=== PATIENT | female | born 1960 | race Caucasian/White ===

== ENCOUNTER → 2017-01-03 | Outpatient (CLI) | payer OTHER ==
--- NOTE | 2017-01-03 16:15 | US ---
EXAMINATION TYPE: US venous doppler duplex LE LT DATE OF EXAM: 01/03/2017 3:57 PM COMPARISON: NONE CLINICAL HISTORY: I82.40 DVT lower left extremity. Left calf pain. No hx of blood clots or on blood thinners SIDE PERFORMED: Left grayscale, color Doppler, spectral Doppler imaging performed of the deep veins o f the left lower extremity. The level of the mid popliteal vein there is a focal eccentric low-level echo at the level of ectasia of the vein. Most likely represent a valve. There is no obstruction to f low, color flow is noted. The femoral vein and common femoral vein show normal compressibility and bl ood flow, no abnormal luminal echoes. Left Leg: Appears negative for DVT IMPRESSION: Findings felt most likely represent of bowel within the popliteal vein, short interval f ollow-up could be performed as indicated. No acute deep venous thrombosis is suspected.
== END ==
LOC: RADUSWWP 15:08
PROVIDERS: ATTEND Family Medicine
DX: I82.402 Acute embolism and thrombosis of unspecified deep veins of left lower extremity (principal)

== ENCOUNTER → 2017-11-07 | Outpatient (CLI) | payer OTHER ==
--- NOTE | 2017-11-07 13:39 | US ---
EXAMINATION TYPE: US thyroid st tissue head/neck DATE OF EXAM: 11/07/2017 COMPARISON: NONE CLINICAL HISTORY: D17.9 Benign lipomatous neoplasm, unspecified. GLAND SIZE: Right Lobe: 4.7 x 2.3 x 1.9 cm Overall Parenchyma: heterogenous Left Lobe: 3.8 x 2.1 x 1.5 cm Overall Parenchyma: heterogeneous Isthmus Thickness: 0.9 cm NODULES RIGHT: # of nodules measured on right: 0 LEFT: # of nodules measured on left: 0 ISTHMUS: # of nodules measured in the isthmus: 0 Bilateral neck scanned, no evidence of lymphadenopathy. gland is diffusely enlarged and heterogeneous. IMPRESSION: Diffuse glandular enlargement and heterogeneity without distinct nodule.
== END | disposition home or self-care (01) ==
LOC: RADUSWWP 12:56
PROVIDERS: ATTEND Family Medicine
DX: E04.9 Nontoxic goiter, unspecified (principal)
CPT/HCPCS: 76536

== ENCOUNTER → 2019-11-19 | Outpatient (CLI) | payer OTHER ==
--- NOTE | 2019-11-20 07:24 | XR ---
EXAMINATION TYPE: XR chest 2V DATE OF EXAM: 11/19/2019 COMPARISON: NONE HISTORY: Chest pain after fall TECHNIQUE: Frontal and lateral views of the chest are obtained. FINDINGS: There is no focal air space opacity, pleural effusion, or pneumothorax seen. The cardiac silhouette size is within normal limits. The osseous structures are intact. IMPRESSION: No acute cardiopulmonary process.
--- NOTE | 2019-11-20 07:25 | XR ---
EXAMINATION TYPE: XR clavicle RT DATE OF EXAM: 11/19/2019 COMPARISON: NONE HISTORY: Right shoulder pain and numbness and recent fall TECHNIQUE: 2 views of the right clavicle were obtained FINDINGS: No acute displaced fracture seen of the right clavicle. No healed callused fracture deformi ty. Acromioclavicular interval and coracoclavicular interval are maintained. Visualized right ribs ap pear intact. IMPRESSION: No acute displaced fracture of the right clavicle.
--- NOTE | 2019-11-20 07:26 | XR ---
EXAMINATION TYPE: XR femur RT DATE OF EXAM: 11/19/2019 CLINICAL HISTORY: Right-sided back and leg pain after fall TECHNIQUE: Two views of the right femur are obtained. COMPARISON: None FINDINGS: There is no acute fracture or dislocation seen in the right femur. The right hip and knee joints appear aligned. Mild medial compartment joint space narrowing of the knee. The overlying sof t tissue appears unremarkable. IMPRESSION: There is no acute fracture or dislocation in the right femur.
--- NOTE | 2019-11-20 07:26 | XR ---
EXAMINATION TYPE: XR forearm RT DATE OF EXAM: 11/19/2019 COMPARISON: NONE HISTORY: Right arm pain and numbness after fall TECHNIQUE: 2 views of the right forearm are obtained FINDINGS: No elbow joint effusion. No acute displaced fracture of the right forearm. Soft tissues are unremarkable. Osseous mineralization is within normal limits. IMPRESSION: No acute displaced fracture of the right forearm.
--- NOTE | 2019-11-20 07:27 | XR ---
EXAMINATION TYPE: XR elbow complete RT DATE OF EXAM: 11/19/2019 CLINICAL HISTORY: Right elbow pain after fall TECHNIQUE: Frontal, lateral and oblique images of the right elbow are obtained. COMPARISON: None FINDINGS: There is no acute fracture/dislocation evident in the right elbow. Bilateral supracondylar small enthesophytes are seen. No abnormal fat pad signs are seen. The overlying soft tissue appears unremarkable. IMPRESSION: There is no acute fracture or dislocation in the right elbow.
--- NOTE | 2019-11-20 07:30 | XR ---
EXAMINATION TYPE: XR cervical spine comp DATE OF EXAM: 11/19/2019 TECHNIQUE: Frontal, lateral, oblique, swimmers, and open mouth view of the cervical spine are obtaine d. HISTORY: Z91.81 History of falling M25.511 Pain in right sh COMPARISON: None FINDINGS: Intact anterior cervical fusion device is seen from C4 through C6. There is straightening o f usual cervical lordosis. Incidentally noted calcifications of the left carotid. No new malalignment or vertebral body height loss. Multilevel uncovertebral hypertrophy without significant neural macho inal narrowing radiographically on the oblique images. Odontoid appears intact. Prevertebral soft tis sues are unremarkable. IMPRESSION: 1. No acute fracture or malalignment is seen in the cervical spine. 2. Anterior cervical fusion of C4-C6 without hardware fracture.
== END | disposition home or self-care (01) ==
LOC: RADXRMAIN 15:15
PROVIDERS: ATTEND Family Medicine
DX: M25.511 Pain in right shoulder (principal); M79.651 Pain in right thigh; Z98.1 Arthrodesis status; Z91.81 History of falling
CPT/HCPCS: 71046; 72050

== ENCOUNTER → 2023-01-13 | Outpatient (CLI) | payer OTHER ==
--- NOTE | 2023-01-13 23:00 | XR ---
EXAMINATION TYPE: XR foot complete LT DATE OF EXAM: 01/13/2023 CLINICAL HISTORY: Pain worse and second toe TECHNIQUE: Frontal, lateral, and oblique images of the left foot are obtained. COMPARISON: None FINDINGS: There is no acute fracture/dislocation evident in the left foot. Marked hallux valgus defo rmity first metatarsophalangeal joint with mild to moderate narrowing. Enthesopathy posterior superio r calcaneus at distal Achilles tendon insertion. Overlying soft tissue is unremarkable. IMPRESSION: As above.
== END | disposition home or self-care (01) ==
LOC: RADXRMAIN 17:08
PROVIDERS: ATTEND Family Medicine
DX: M20.12 Hallux valgus (acquired), left foot (principal); M77.8 Other enthesopathies, not elsewhere classified

== ENCOUNTER → 2023-02-08 | Outpatient (CLI) | payer OTHER ==
--- NOTE | 2023-02-09 08:38 | CT ---
EXAMINATION TYPE: CT ChestAbdPelvis w con DATE OF EXAM: 02/08/2023 COMPARISON: None. HISTORY: generalized chest, abdominal, and pelvic pain x [address] DLP: 1010.8 mGycm. Automated Exposure Control for Dose Reduction was Utilized. CONTRAST: CT scan of the thorax, abdomen and pelvis is performed with IV Contrast, patient injected with 100ML mL of Isovue 300. FINDINGS: LUNGS: There is 1.2 cm thin-walled cyst in the left upper lobe axial image 26. There is 1.2 x 0.5 cm spiculated nodule or scar like opacity lateral right upper lobe axial image 15. No focal consolidatio n. There is no pleural effusion or pneumothorax seen. The tracheobronchial tree is patent. MEDIASTINUM: There are no greater than 1 cm hilar or mediastinal lymph nodes. No cardiomegaly or pe ricardial effusion is seen. Coronary artery calcification is present. LIVER/GB: Cholecystectomy clips are seen. Liver is diffusely low dense consistent with diffuse fatty infiltration PANCREAS: No significant abnormality is seen. SPLEEN: No significant abnormality is seen. ADRENALS: There is nonspecific 3.0 cm right adrenal mass axial image 55. Hounsfield units average 32. KIDNEYS: No significant abnormality is seen. BOWEL: Oral contrast reaches level of the terminal ileum. This makes evaluation of distal bowel sligh tly suboptimal. Mild/moderate wall thickening in region of the hepatic flexure is nonspecific favored product of poor distention. No suspicious small or large bowel dilatation. Normal-appearing appendix . Slightly redundant sigmoid colon. GENITAL ORGANS: Uterus is surgically absent. A few tiny left-sided pelvic phleboliths are noted. LYMPH NODES: No greater than 1cm abdominal or pelvic lymph nodes are appreciated. OSSEOUS STRUCTURES: Multilevel facet arthropathy in the lower lumbar spine. OTHER: Moderate peripheral mixed plaque of the aorta extends into branch vessels. IMPRESSION: 1. There is 1.2 x 0.5 cm scarlike opacity peripheral right upper lobe. Postinflammatory etiology fav ored. Cannot entirely exclude spiculated nodule. Consider PET- CT or short-term diagnostic CT follow- up in 3-6 months time to reassess. 2. Nonspecific 3.0 cm right adrenal mass. Malignant etiology not excluded. Consider adrenal protocol CT or MRI to further evaluate.
== END | disposition home or self-care (01) ==
LOC: RADCTMAIN 12:58
PROVIDERS: ATTEND Family Medicine
DX: E27.9 Disorder of adrenal gland, unspecified (principal); R07.9 Chest pain, unspecified; R91.8 Other nonspecific abnormal finding of lung field; R10.2 Pelvic and perineal pain; R10.84 Generalized abdominal pain
CPT/HCPCS: 71260; 74177; Q9967

== ENCOUNTER → 2023-04-17 | Outpatient (CLI) | payer OTHER ==
--- NOTE | 2023-04-19 08:51 | MR ---
EXAMINATION TYPE: MR kidney wo/w con DATE OF EXAM: 04/17/2023 10:00 PM INDICATION: Patient age:Female; 62 years old; Reason for study: D35.00; Pt has an intermittent hardness of her abdomen that is painful sometimes - Prev CT recommended MR COMPARISON: CT scan abdomen from 02/08/2023. TECHNIQUE: Multiplanar multi-sequence imaging was performed without contrast. Post contrast imaging was performed. Post IV contrast subtraction images were also submitted for review. IV Contrast: 7ml cc Gadavist FINDINGS: LOWER CHEST: No gross irregularity. ABDOMEN Liver: Simple appearing left ovarian cyst measuring 12 mm. Gallbladder and Bile ducts: The external biliary system is dilated measuring 8 mm at the pancreatic h ead and the common hepatic duct measuring 12 mm. The gallbladder surgically absent. This suggests nor mal post cholecystectomy physiology. Pancreas: Unremarkable. Spleen: Unremarkable. Adrenal glands: Right adrenal mass measuring 2.4 x 1.8 cm with dropout of signal on out of phase chem ical shift imaging. The left adrenal glands unremarkable. Kidneys: No suspicious masses. No hydronephrosis bilateral subcentimeter high T2 foci likely represen ting small cysts. Stomach and Bowel: Unremarkable as visualized. Peritoneum: No evidence of pneumoperitoneum or free fluid. Vasculature: Atherosclerosis of the arterial vasculature.. No aortic aneurysm. Musculoskeletal: L2 vertebral body low T2 signal low T1 signal lower T1 signal lesion without definit lang corresponding CT finding without postcontrast enhancement. T11 vertebral body height T2 signal pr obable hemangioma. Lymph Nodes: No gross evidence for lymphadenopathy. Abdominal wall: Unremarkable. IMPRESSION: 1. Right adrenal lesion measuring up to 2.4 cm most compatible with lipid rich adrenal adenoma with signal dropout on chemical shift imaging. 2. Cholecystectomy with post cholecystectomy dilation of the external and central intrahepatic bilia ry system.
== END | disposition home or self-care (01) ==
LOC: RADMRIMAIN 20:30
PROVIDERS: ATTEND Family Medicine
DX: D35.01 Benign neoplasm of right adrenal gland (principal); K83.8 Other specified diseases of biliary tract; Z90.49 Acquired absence of other specified parts of digestive tract
CPT/HCPCS: 74183; A9585

== ENCOUNTER → 2023-10-05 | Outpatient (CLI) | payer OTHER ==
--- NOTE | 2023-10-12 09:18 | PE ---
EXAMINATION TYPE: PET CT fusion skull to thigh DATE OF EXAM: 10/05/2023 COMPARISON: 02/08/2023 Prior PET/CT: None HISTORY: Liver abnormality TECHNIQUE: Following the intravenous administration of 9.81 mCi of F-18 FDG, whole body images are p erformed from the skull base to the midthigh. Images are reviewed on the computer in the coronal, ax ial, and sagittal planes. Reconstructed rotating images are created on independent workstation and r eviewed on the computer. A localization and attenuation correction CT is performed in conjunction w ith the PET scan. DLP: 355.01 mGycm SCAN: Initial Blood glucose: 104 mg/dL Average Mediastinum SUV: 2.19 Average Liver SUV: 2.44 FINDINGS: NECK: No abnormal uptake THORAX: There is abnormal uptake within the lateral right upper lung field, image 69, SUV 6.52. ABDOMEN: No abnormal uptake. The liver appears unremarkable. No suspicious uptake to correlate with t he prior CT finding. No suspicious uptake within the right adrenal gland PELVIS: No abnormal uptake OSSEOUS STRUCTURES: No abnormal uptake LOCALIZATION CT: There is an area of pulmonary fibrosis corresponding to the area of abnormal uptake on PET CT. COMPARISON: IMPRESSION: 1. Suspicious nodule within an area of pulmonary fibrosis lateral right upper lung field. Neoplasm sh ould be considered. Additional workup is recommended. 2. No suspicious uptake within the liver correlated with prior chest abdomen and pelvis CT. 3. No suspicious uptake within the right adrenal gland.
== END | disposition home or self-care (01) ==
LOC: RADPETMAIN 15:00
PROVIDERS: ATTEND Family Medicine
DX: C22.8 Malignant neoplasm of liver, primary, unspecified as to type (principal); J84.10 Pulmonary fibrosis, unspecified
CPT/HCPCS: 78815; A9552

== ENCOUNTER → 2024-01-25 | Outpatient (CLI) | payer OTHER ==
--- NOTE | 2024-01-26 15:22 | PE ---
EXAMINATION TYPE: PET CT fusion skull to thigh DATE OF EXAM: 01/25/2024 CLINICAL INDICATION:Female, 63 years old with history of C34.11; TECHNIQUE: Following the intravenous administration of 8.12 mCi of F-18 FDG, whole body images are performed from the skull base to the midthigh. Images are reviewed on the computer in the coronal, a xial, and sagittal planes. Reconstructed rotating images are created on independent workstation and reviewed on the computer. A non-contrast CT is performed in conjunction with the PET scan. Glucose level 109 mg/dL CT DLP mGycm, Automated exposure control for dose reduction was used. COMPARISON: CT 02/08/2023, PET/CT 10/05/2023, FINDINGS: Mediastinal SUV mean is 2.5. Hepatic parenchyma SUV mean is 2.8. SKULL BASE AND NECK: No suspicious radiotracer activity. CHEST, MEDIASTINUM, AND HILAR REGION: * Suspected posttreatment changes to the right upper lung with superimposed airspace consolidation p resent. Cavitary lesion now measuring 24 x 29 mm, previously measuring up to 10 mm. Max SUV 19.3, pre viously 6.6. There is increased solid component within this lesion on today's exam. New area more inf eriorly and posteriorly along the fissures uptake max SUV 4.1. * Right low paratracheal lymph node max SUV 4.1, previously 2.8. ABDOMEN AND PELVIS: No suspicious radiotracer activity. MUSCULOSKELETAL STRUCTURES: No suspicious radiotracer activity. OTHER CT: Atherosclerosis of the carotid bifurcations. Postsurgical changes of the spine. Hardware ap pears intact. Atherosclerosis of the coronary arteries. The heart is mildly enlarged for size. Right adrenal nodule appearing 22 mm. Cholecystectomy changes. Clonic diverticulosis. Appendix is normal. IMPRESSION: 1. Suspected posttreatment changes with increased metabolic activity and size with increased solid c omponent of the valdez of the right upper lung cavitary pulmonary nodule. 2. A right low paratracheal lymph node is also present and could be reactive.
--- NOTE | 2024-01-29 17:00 | P.GSHP ---
History of Present Illness H&P Date: 01/29/24 Chief Complaint: Lung Cancer This patient is here regarding an opinion on a newly diagnosed adenocarcinoma of the RUL. The patient is a 63 y/o F with >80 pack year history of smoking, htn, hld, hypothy and fibromyalgia who had a CT Chest on 02/09/23 which revealed a 1cm nodule in the RUL. For whatever reason, she was lost to follow-up and had issues with her insurance. She underwent PET/CT on 10/02/23 which revealed a 3cm tumor with possible 4R lymph node. She then had a biopsy of the lesion on 12/18/23 in [place] which revealed poorly differentiated adenocarcinoma. She has had a repeat PET/CT which reveals the nodule plus new inflammatory changes in both the upper and middle lobes. The patient has cut down to 1/2ppd. She initially lost 15 lbs but then re-gained 10. She denies hemoptysis, chest pain, or productive cough. She has a chronic dry cough. - Constitutional Constitutional: Reports as per HPI - EENT Ears, nose, mouth and throat: Reports as per HPI - Cardiovascular Cardiovascular: Reports as per HPI - Respiratory Respiratory: Reports as per HPI - Gastrointestinal Gastrointestinal: Reports as per HPI Past Medical History Past Medical History: Asthma, Cancer, Hyperlipidemia Additional Past Medical History / Comment(s): Pinched Nerve in lower hip History of Any Multi-Drug Resistant Organisms: None Reported Past Surgical History: Back Surgery, Cholecystectomy, Hysterectomy Past Psychological History: Depression Past Alcohol Use History: None Reported Past Drug Use History: None Reported Medications and Allergies Home Medications Medication Instructions Recorded Confirmed Type EPINEPHrine [Epipen 2-Hao] 0.3 mg IJ ONCE PRN #1 auto.injct 12/19/15 Rx Furosemide [Lasix] 40 mg PO DAILY 12/19/15 12/19/15 History HYDROcodone/APAP 7.5-325MG [[place] 1 tab PO TID 12/19/15 12/19/15 History 7.5-325] diazePAM [Valium] 5 mg PO HS 12/19/15 12/19/15 History predniSONE [Deltasone] 20 mg PO DAILY #3 tab 12/19/15 Rx Allergies Allergy/AdvReac Type Severity Reaction Status Date / Time cephalexin monohydrate Allergy Rash/Hives Verified 12/19/15 22:56 [From Keflex] Surgical - Exam - General well developed, well nourished - Eyes PERRL absent: ptosis - ENT normal pinna - Neck no masses lymphadenopathy: absent - Respiratory normal respiratory effort, clear to auscultation - Cardiovascular Rhythm: regular Heart Sounds: normal: S1, S2 Results FEV 1 - 1.72L (74%) - Imaging CT scan - chest: report reviewed, image reviewed Assessment and Plan Assessment: 63 y/o F with a 3cm RUL poorly differentiated adenocarcinoma. She may have disease in 4R lymph node and most recent PET/CT reveals intense inflammatory reaction near the tumor and encompassing the middle lobe. I am concerned that her carcinoma has progressed. We had a long discussion about treatment options today. We discussed that surgery is not off the table but we need more infor mation. Plan: Prior to planning any surgical resection we will obtain the followin. EBUS and full PFT's with Dr. Dumont 2. Then refer back to Dr. Tejada for possible neoadjuvant 3. Cardiac stress test 4. MRI Brain We will see her back again in the office after these things are done. She will need a re-staging PET if she undergoes neoadjuvant. Time with Patient: Greater than 30
== END | disposition home or self-care (01) ==
LOC: RADPETMAIN 10:14
PROVIDERS: ATTEND Internal Medicine Hematology & Oncology
DX: C34.11 Malignant neoplasm of upper lobe, right bronchus or lung (principal)
CPT/HCPCS: 78815; A9552

== ENCOUNTER 2024-02-07 12:24 | Day surgery (SDC) | payer OTHER ==
[2024-02-06 11:59] VITALS: BMI 29.2
[~2024-02-07 12:24] MED LIST: LACTATED RINGERS 1,000 ML IV SCH; LIDOCAINE 1% (10MG/ML) FOR IV START INTRADERMA PRN
[2024-02-07] MEDS: LACTATED RINGERS 1,000 ML IV SCH (13:30)
[2024-02-07] MEDS ORDERED: ROCURONIUM 10 MG/ML (5 ML VIAL) IV ONE (13:58)
[2024-02-07] MEDS ORDERED: fentaNYL (PF) 50 MCG/ML 2 ML AMP ONE (13:58)
[2024-02-07] MEDS ORDERED: PROPOFOL 10 MG/ML 20 ML VIAL IV ONE (13:58)
[2024-02-07] MEDS ORDERED: NEOSTIGMINE 1 MG/ML 10 ML VIAL ONE (13:58)
[2024-02-07] MEDS ORDERED: LIDOCAINE 1% INJ 10MG/ML (20 ML MDV) ONE (13:58)
[2024-02-07] MEDS ORDERED: MIDAZOLAM 2 MG/2 ML VIAL ONE (13:58)
[2024-02-07] MEDS ORDERED: ONDANSETRON 4 MG/2 ML VIAL ONE (13:58)
[2024-02-07] MEDS ORDERED: GLYCOPYRROLATE 0.2 MG/ML 2 ML VIAL ONE (13:58)
[2024-02-07] MEDS ORDERED: SUCCINYLCHOLINE CHLORIDE 200 MG/10 ML VIAL IV ONE (13:58)
[2024-02-07] MEDS ORDERED: PHENYLEPHRINE 10 MG/ML VIAL ONE (13:58)
[2024-02-07] MEDS ORDERED: DEXAMETHASONE SOD PHOSPHATE 4 MG/ML 1 ML VIAL ONE (13:58)
--- NOTE | 2024-02-07 14:38 | CT ---
EXAMINATION TYPE: CT chest wo con CT DLP: 257.60 mGycm, Automated exposure control for dose reduction was used. DATE OF EXAM: 02/07/2024 12:57 PM COMPARISON: Chest radiograph from same day. Multiple CTs of the chest with most recent on . CLINICAL INDICATION:Female, 63 years old with history of ion bronchoscopy; PHH, Ion Bronchoscopy TECHNIQUE: Multiple axial images were obtained through the chest. Sagittal and coronal reformats were created for review. Contrast used: mL of (None if empty) Oral contrast used: (None if empty) FINDINGS: LUNGS/ PLEURA: Cystic versus centrally necrotic right upper lobe thick walled mass is identified exte nsive surrounding fibrosis. The surrounding fibrosis raises question of whether there has been previo us radiation therapy. Other etiologies are possible such as disseminated infectious, inflammatory or neoplastic process. AIRWAY: Patent and unremarkable. HEART: Size within normal limits. MEDIASTINUM: No gross evidence of adenopathy. VASCULATURE: No aortic aneurysm. MUSCULOSKELETAL: No acute osseous abnormalities SOFT TISSUES/LYMPH NODES: Unremarkable. LOWER NECK: No significant findings. UPPER ABDOMEN: No significant findings. IMPRESSION: 31 mm thick walled lesion in the right upper lobe and 21 mm thin-walled lesion in the left upper lobe cystic lesion is identified in the left upper lobe. Follow up recommendations for incidental pulmonary nodules, if there are any, are per [employer] or [employer]. https://[email or web address].org/[email or web address]?lang=us
--- NOTE | 2024-02-07 15:08 | FL ---
EXAMINATION TYPE: FL bronchoscopy DATE OF EXAM: 02/07/2024 CLINICAL HISTORY: Ion Robot TECHNIQUE: Fluoroscopy. COMPARISON: None. FINDINGS: 30 sec FL .5049 DAP dose IMPRESSION: As Above.
--- NOTE | 2024-02-07 15:09 | P.PCN ---
Date of Procedure: 02/07/24 Description of Procedure: Operative Findings: Preoperative Diagnosis: Right mass measuring 24 x 29 mm in size along with significant distal socials infiltrates surrounding the mass. Mediastinal lymphadenopathy Postoperative Diagnosis: Right upper lobe mass mediastinal lymphadenopathy Procedure(s) Performed: Flexible bronchoscopy Robotic-assisted bronchoscopy and addition to radial ultrasound evaluation of the right upper lobe mass Robotic-assisted transbronchial needle aspirate, transbronchial biopsies and transbronchial brushing of a right upper lobe mass in addition to a bronchioloalveolar lavage Endobronchial ultrasound TBNA of the station 7 and 4R lymph nodes Anesthesia: RICH Surgeon: Gee Dumont Estimated Blood Loss (ml): 0 Pathology: other Condition: stable Disposition: same day Operative Findings: A physical exam was performed. Informed consent was obtained from the patient after explaining all the risks (pneumothorax, life threatening bleeding, infection and adverse effects due to medications), benefits and alternatives to the procedure which the patient appeared to understand and so stated. The patient was connected to the monitoring devices. General anesthesia was induced and the patient was intubated by anesthesia. A final timeout was performed and the procedure confirmed by the attending staff bronchoscopist. The bronchoscope was inserted and the airway examined. The patient had some bloody secretions within the within the airways. The bloody respiratory secretions were both in the upper and lower lobes. The origin of the bleed was most likely right upper lobe bronchus as most of the respiratory bloody secretions were located in the right upper lobe. The flexible bronchoscope was removed and the robotic bronchoscope was inserted. Registration was completed. I next guided the robotic bronchoscope using the navigation system into the right anterior segment of the RUL. Once in proper position, the bronchoscope was frozen. The radial EBUS probe was placed through the bronchoscope and confirmed abnormal u/s images vs normal lung. A needle was placed through the working channel and under fluoroscopic guidance, we sampled the area thought to have the mass twice. We then used a cloud biopsy pattern with ultrasound confirmation for 2 additional passes with the needle. U/S evaluation was then used to reconfirm location. Forceps were next introduced through working channel and extended the appropriate distance and 3 transbronchial biopsies were performed using fluoroscopic guidance. The u/s probe was then reinserted to confirm location. When confirmed this process was repeated for a total of 8-10 transbronchial biopsies. After reassessment with EBUS, a brush was placed through the extendable working channel for 1 pass with fluoroscopic guidance. U/S evaluation was then used to confirm location. 40ml of saline was then instilled into the area of the lesion. The robotic bronchoscope was removed and the airway inspected with a flexible bronchoscope and 10 ml of effluent from the BAL was collected. The aspirate was bloody and ultimately declotted and based on that, the sample was discarded. Flex. bronchoscope was inserted and regular suctioning was done. At the completion of the procedure, no residual secretions or bloody material within the airway. The bronchoscope was removed. The patient was extubated. Endobronchial ultrasound was done with mediastinal lymph node evaluation. A detailed evaluation of the mediastinal lymph nodes was done using endobronchial ultrasound. Based on examination, there was a 21x8 mm subcarinal station 7 lymph nodes , 9x6 mm lymph node in the 10R , 8 x 13 mm 4R location. Using a 22-gauge vizishot needle, transbronchial needle aspirate of the subcarinal lymph node station 7 and station 4R lymph node was done and a total of 4 passes from the stations was taken. No complications. No bleeding. Station 4R was chosen as this lymph node was quite adequate. Endobronchial ultrasound was removed. Flexible bronchoscope was introduced and have regular suctioning was done and the airway was evacuated from any residual bloody secretions. The flexible bronchoscope was 1 and the patient was extubated and transferred to recovery in stable condition. Chest x-rays to follow. FINDINGS: 1.The airways appeared normal 2 Successful navigation, ultrasonographic identification, and biopsies of Right upper lobe mass 3.The the radial ultrasound view was concentric RECOMMENDATIONS: Await pathology and cytology results The referring physician will be alerted to the results when available. The patient was advised to follow up with the referring physician with the biopsy results Patient will be called with results.
[2024-02-07] MEDS: IV FLUID CONTINUATION 1,000 ML IV ONE (15:14)
[2024-02-07] MEDS: RACEPINEPHRINE 2.25% NEB 0.5 ML NEBU INHALATION ONE (15:15)
[2024-02-07] MEDS: DEXAMETHASONE SOD PHOSPHATE 10 MG/ML 1 ML VIAL IV ONE (15:16)
[2024-02-07 15:29] VITALS: TEMP 96.9
[2024-02-07 16:14] VITALS: BP 102/66; PULSE 80; RESP 16
--- NOTE | 2024-02-07 16:23 | XR ---
EXAMINATION TYPE: XR chest 1V DATE OF EXAM: 02/07/2024 COMPARISON: 02/03/2020, CT chest 02/07/2024 INDICATION: Post bronchoscopy TECHNIQUE: Single frontal view of the chest is obtained. FINDINGS: The heart size is normal. The pulmonary vasculature is normal. Increased densities over the lateral right upper lung field. Cavitary area may be within the upper po rtion of this collection. This correlates with the findings on CT examination. No pneumothorax is tonia dent. IMPRESSION: 1. Consolidation mass right upper lung field. 2. No pneumothorax post bronchoscopy. Follow-up can be performed as clinically indicated.
== END 2024-02-07 16:28 | disposition home or self-care (01) ==
LOC: ORWHC2ENDO 12:24
PROVIDERS: ATTEND Internal Medicine Critical Care Medicine
DX: R91.8 Other nonspecific abnormal finding of lung field (principal); I10 Essential (primary) hypertension; E78.5 Hyperlipidemia, unspecified; J45.909 Unspecified asthma, uncomplicated; E03.9 Hypothyroidism, unspecified; K21.9 Gastro-esophageal reflux disease without esophagitis; Z79.51 Long term (current) use of inhaled steroids; Z98.890 Other specified postprocedural states; Z79.899 Other long term (current) drug therapy; Z79.890 Hormone replacement therapy
CPT/HCPCS: 31654; 88305; 87070; 87205; 87116; 87102; 87206; 71045; 71250; 31628; 31629; 31623; 31624; 31652; J2250; J0330; J1100 ×2; J2710; J2405; J2001; J3010; J2704; J2371; S2900

== ENCOUNTER → 2024-02-13 | Outpatient (CLI) | payer OTHER ==
--- NOTE | 2024-02-13 10:30 | CA ---
Exercise Stress Test Report Name: Maisha Stephen Exam Date: 02/13/2024 09:13 Exam Location: [place] Stress Ht (in): 62 Wt (lb): 160 BSA: 1.74 Ordering Phys: Palma Horta MD Referring Phys: PALMA HORTA Technologist: Emilia Wooten RDCS Age: 63 Gender: F : 1960 Procedure CPT: Indications: I25.10 cardiovascular disease ICD-10 Codes: Patient History: Medications: Meds past 24 hrs: Pretest Chest Pain: STRESS TEST Ruben Protocol Exercise Duration (min:sec): 01:[address] Depressions (mm): Angina Score: Reveles Score: Resting HR (bpm): 71 Peak HR (bpm): 134 Resting BP (mmHg): 135 / 78 Peak BP (mmHg): 180 / 58 MPHR: 158 Target HR: 134 % MPHR: 85 METS: 3.4 Total Dose: Peak Dose: Atropine: Double Product: 13237 BP Response: Stress Termination: PATIENT REQUEST TO STOP Stress Symptoms: NO SYMPTOMS Stress Summary: ECG ANALYSIS Resting ECG: Stress ECG: CONCLUSIONS Poor exercise tolerance Normal electrocardiogram stress testing Dr. Humza Patel MD (Electronically Signed) Final Date: 13 February 2024 10:29
--- NOTE | 2024-02-13 12:16 | MR ---
EXAMINATION TYPE: MR brain wo/w con DATE OF EXAM: 02/13/2024 COMPARISON: None HISTORY: Lung cancer, Evaluate for mets TECHNIQUE: Multiplanar, multisequence images of the brain and brainstem is performed without and with IV contras t, utilizing 7 mL intravenous Gadavist . FINDINGS: Diffusion weighted images demonstrate no evidence of a recent infarct or other diffusion ab normality. There is mild generalized degenerative change. Abnormal signal in the white matter is nonspecific but most likely microvascular ischemia. Midline structures demonstrate normal morphology. The craniocervical junction appears within normal limits. Post contrast images demonstrate no enhancing mass. There is incidental note made of a small venous angioma in the right frontal lobe.. The dural venous sinuses appear patent. Ascites and the globes are intact. IMPRESSION: 1. No enhancing mass or mass effect. 2. Degenerative and nonspecific white matter changes most typical of remote microvascular ischemia.
== END | disposition home or self-care (01) ==
LOC: RADNMMAIN 08:48
PROVIDERS: ATTEND Thoracic Surgery (Cardiothoracic Vascular Surgery)
DX: C34.11 Malignant neoplasm of upper lobe, right bronchus or lung (principal); I25.10 Atherosclerotic heart disease of native coronary artery without angina pectoris; I67.82 Cerebral ischemia
CPT/HCPCS: 93017; 70553; A9585

== ENCOUNTER → 2024-05-02 | Outpatient (CLI) | payer OTHER ==
[2024-05-02 11:07] LABS: African American GFR (CKD) 50 (>60 ml/min/1.73 sqM); Blood Urea Nitrogen 21 mg/dL (7-17); Non-African American GFR(CKD) 43 (>60 ml/min/1.73 sqM)
--- NOTE | 2024-05-03 10:34 | CT ---
EXAMINATION TYPE: CT chest w con CT DLP: 225.7 mGycm, Automated exposure control for dose reduction was used. DATE OF EXAM: 05/02/2024 12:11 PM COMPARISON: CT chest 02/07/2024, PET CT 01/25/2024, 10/05/2023. CLINICAL INDICATION:Female, 64 years old with history of C34.11 LUNG CA; PHH, Lung Cancer TECHNIQUE: Multiple axial images were obtained through the chest following the administration of 100 cc of Isovue 300. . Coronal and sagittal reformats reviewed. FINDINGS: LUNGS/ PLEURA: No pleural effusion or pneumothorax. Significant improvement to previously seen inters titial opacities within the right upper lobe. There are some residual opacities identified within the right upper lobe. Decreased size of 1.8 cm peripheral right upper lobe cystic lesion now demonstrat ing a thin wall measuring up to 2 mm in thickness, previously measured 3.1 cm with a maximal wall thi ckness of 9 mm (series 4, image 12). Slight decrease in size of lateral left upper lobe 1.7 cm cystic lesion, previously measured 2.1 cm. However there is new eccentric wall thickening measuring up to 9 mm (series 4, image 24). No new definitive pulmonary nodules or masses. AIRWAY: Patent and unremarkable.. HEART: Size within normal limits. No pericardial effusion. MEDIASTINUM: No evidence of adenopathy. VASCULATURE: No aortic aneurysm. Mild atherosclerotic calcification of the aorta and its branches. MUSCULOSKELETAL: No acute osseous abnormalities. Anterior cervical fusion hardware. No aggressive oss eous lesion. SOFT TISSUES/LYMPH NODES: Unremarkable. LOWER NECK: No significant findings. UPPER ABDOMEN: Post cholecystectomy changes. Dilatation of the common bile duct which is likely relat ed to post cholecystectomy. Liver is diffusely hypoattenuating consistent with steatosis. Stable righ t adrenal 2.1 cm nodule which was not FDG avid on prior PET/CT. IMPRESSION: 1. Significant improvement in right upper lobe interstitial opacities with some residual opacities re maining. Decrease in size of right upper lobe cystic lesion with marked thinning of the wall suggesti ng positive response to treatment however the left upper lobe cystic lesion has now developed eccentr ic wall thickening suggesting possible recurrence versus infectious/inflammatory etiology. No new pul monary nodules/masses. No new lymphadenopathy. Further evaluation with PET/CT is recommended. 2. Stable right adrenal gland nodule. 3. Hepatic steatosis.
== END | disposition home or self-care (01) ==
LOC: RADCTMAIN 10:10
PROVIDERS: ATTEND Internal Medicine Hematology & Oncology
DX: C34.11 Malignant neoplasm of upper lobe, right bronchus or lung (principal); K76.0 Fatty (change of) liver, not elsewhere classified; R91.8 Other nonspecific abnormal finding of lung field; E27.9 Disorder of adrenal gland, unspecified
CPT/HCPCS: 82565; 84520; 71260; 36415; Q9967

== ENCOUNTER → 2024-05-17 | Outpatient (CLI) | payer OTHER ==
--- NOTE | 2024-05-17 15:48 | US ---
EXAMINATION TYPE: US kidneys/renal and bladder DATE OF EXAM: 05/17/2024 COMPARISON: PET 2022, CT 2022, and MR kidneys 04/17/2023 CLINICAL INDICATION: Female, 64 years old with history of C34.11 LUNG CA; Hx lung cancer; evaluate fo r renal mass. Abnormal renal labs EXAM MEASUREMENTS: Right Kidney: 10.1 x 4.8 x 5.1 cm Left Kidney: 9.7 x 4.5 x 4.4 cm Right Kidney: Questionable renal mass versus dromedary hump. 2.6 x 3.3 x 2.5cm Left Kidney: Appears wnl Bladder: Not distended Bilateral Jets seen: No There is no evidence for hydronephrosis at this point in time. No nephrolithiasis is seen. Right zacarias al dromedary hump redemonstrated. Left kidney appears unremarkable. No suspicious renal mass identifi ed. The visualized portion liver is echogenic consistent with fatty infiltration. The urinary bladder is underdistended limiting evaluation. Bilateral ureteral jets are not seen. IMPRESSION: 1. No hydronephrosis or nephrolithiasis. 2. Right renal dromedary hump. No ultrasound evidence for suspicious renal mass. 3. Hepatic steatosis.
== END | disposition home or self-care (01) ==
LOC: RADUSWWP 15:17
PROVIDERS: ATTEND Internal Medicine Hematology & Oncology
DX: K76.0 Fatty (change of) liver, not elsewhere classified (principal); C34.11 Malignant neoplasm of upper lobe, right bronchus or lung; N28.89 Other specified disorders of kidney and ureter; Z03.89 Encounter for observation for other suspected diseases and conditions ruled out; R79.89 Other specified abnormal findings of blood chemistry
CPT/HCPCS: 76770

== ENCOUNTER → 2024-06-21 | Outpatient (CLI) | payer OTHER ==
[2024-06-21 14:30] LABS: INR 0.9 (<1.2); Partial Thromboplastin Time 23.9 sec (22.0-30.0); Prothrombin Time 10.4 sec (10.0-12.5)
[2024-06-21 18:11] LABS: HCT 33.1 % (37.2-46.3); MCH 28.6 pg (27.0-32.0); MCHC 30.2 g/dL (32.0-37.0); MCV 94.6 FL (80.0-97.0); Mean Platelet Volume 10.3 FL (9.5-12.2); NRBC Per 100 WBC 0 X 10*3/uL (0.00-0.01); Platelet Count 291 X 10*3/uL (140-440); RDW 22.4 % (11.5-14.5); WBC 6.01 X 10*3/uL (4.50-10.00)
[2024-06-21 18:28] LABS: Appearance,Urine Clear (Clear); Bilirubin,Urine Negative (Negative); Blood,Urine Negative (Negative); Color,Urine Yellow (Yellow); Ketones,Urine Negative (Negative); Nitrite,Urine Negative (Negative); Specific Gravity,Urine 1.013 (1.001-1.030); Urobilinogen,Urine 0.2 E.U./DL
[2024-06-21 18:46] LABS: Bacteria,Urine Trace (None Seen)
[2024-06-21 19:25] LABS: Blood Urea Nitrogen 11.2 mg/dL (9.0-27.0); Carbon Dioxide 25.1 mmol/L (21.6-31.8); Chloride 102 mmol/L (96-109); Glucose 162 mg/dL (70-110); Magnesium 1.8 mg/dL (1.5-2.4); Potassium 4.2 mmol/L (3.5-5.5); Sodium 143 mmol/L (135-145); T4, Free (Free Thyroxine) 1.24 ng/dL (0.80-1.80)
[2024-06-21 20:50] LABS: Anisocytosis (M) 2+; Basophils # (A) 0.06 X 10*3/uL (0.00-0.10); Elliptocytes 2+; Eosinophils # (A) 0.17 X 10*3/uL (0.04-0.35); Eosinophils % (A) 2.8 %; Lymphocytes # (A) 1.27 X 10*3/uL (0.90-5.00); Lymphocytes % (A) 21.1 %; Macrocytosis (M) 2+; Microcytosis (M) 2+; Monocytes # (A) 0.52 X 10*3/uL (0.20-1.00); Monocytes % (A) 8.7 %; Neutrophils # (A) 3.97 X 10*3/uL (1.80-7.70); Neutrophils % (A) 66.1 %; Stomatocytes 2+; Tear Drop Cells 2+
== END | disposition home or self-care (01) ==
LOC: LABPAT 13:21
PROVIDERS: ATTEND Thoracic Surgery (Cardiothoracic Vascular Surgery)
DX: Z01.812 Encounter for preprocedural laboratory examination (principal); C34.11 Malignant neoplasm of upper lobe, right bronchus or lung; I48.91 Unspecified atrial fibrillation; E86.0 Dehydration; R58 Hemorrhage, not elsewhere classified; Z79.899 Other long term (current) drug therapy
CPT/HCPCS: 36415; 80051; 81001; 82565; 82947; 83735; 84439; 84443; 84481; 84520; 85025; 85610; 85730; 86850; 86900; 86901; 87086

== ENCOUNTER 2024-06-27 05:34 | Inpatient (IN) | payer OTHER ==
[~2024-06-27 05:34] MED LIST changes: +DEXAMETHASONE SOD PHOSPHATE 4 MG/ML 1 ML VIAL IV ONE; -LACTATED RINGERS 1,000 ML IV SCH; +droPERidol 5 MG/2 ML VIAL IVP ONE
[2024-06-27] MEDS: IV FLUID CONTINUATION 1,000 ML IV ONE ×3 (06:02→13:26)
[2024-06-27] MEDS: ONDANSETRON 4 MG/2 ML VIAL IVP ONE (06:21)
[2024-06-27] MEDS: LACTATED RINGERS 1,000 ML IV SCH (06:21)
[2024-06-27] MEDS: fentaNYL (PF) 50 MCG/ML 2 ML AMP IVP ONE ×2 (06:57→07:02)
[2024-06-27] MEDS: MIDAZOLAM 2 MG/2 ML VIAL IVP ONE ×2 (06:57→07:02)
[2024-06-27] MEDS ORDERED: HYDROmorphone 0.5 MG/0.5 ML SYRINGE IVP PRN (07:00)
[2024-06-27] MEDS ORDERED: PHENYLEPHRINE-0.9% NACL SYG 1,000 MCG/10 ML SYRINGE ONE (07:23)
[2024-06-27] MEDS ORDERED: DEXAMETHASONE SOD PHOSPHATE 4 MG/ML 1 ML VIAL ONE (07:23)
[2024-06-27] MEDS ORDERED: MIDAZOLAM 2 MG/2 ML VIAL ONE (07:23)
[2024-06-27] MEDS ORDERED: HYDROmorphone (PF) 1 MG/ML ONE (07:23)
[2024-06-27] MEDS ORDERED: SUCCINYLCHOLINE CHLORIDE 200 MG/10 ML VIAL IV ONE (07:23)
[2024-06-27] MEDS ORDERED: LIDOCAINE 1% INJ 10MG/ML (20 ML MDV) ONE (07:23)
[2024-06-27] MEDS ORDERED: ePHEDrine 50 MG/ML 1 ML VIAL ONE (07:23)
[2024-06-27] MEDS ORDERED: PROPOFOL 10 MG/ML 20 ML VIAL IV ONE (07:23)
[2024-06-27] MEDS ORDERED: ROPIVACAINE 5 MG/ML 30 ML VIAL ONE (07:23)
[2024-06-27] MEDS ORDERED: SUGAMMADEX SODIUM 200 MG/2 ML SDV IV ONE (07:23)
[2024-06-27] MEDS ORDERED: ROCURONIUM 10 MG/ML (5 ML VIAL) IV ONE (07:23)
[2024-06-27] MEDS ORDERED: fentaNYL (PF) 50 MCG/ML 2 ML AMP ONE (07:23)
[2024-06-27] MEDS: CLINDAMYCIN 900 MG in DEXTROSE 5% IN WATER 50 ML IVPB PRN (07:28)
--- NOTE | 2024-06-27 07:32 | P.ANPRN ---
Procedure Note - Anesthesia - Nerve Block Performed Right Erector Spinae Single Date of Procedure: 06/27/24 Procedure Start Time: :07 Procedure Stop Time: 07:15 Location of Patient: PreOp Indication: Acute Post-Operative Pain, Requested by Surgeon Specifically requested for management of pain by DrKody: Ruben Yusuf Sedation Type: Sedate with meaningful contact maintained Preparation: Sterile Prep Position: Sitting Ultrasound used to visualize needle placement: Yes Ultrasound used to observe medication spread: Yes Injectate: 0.5% Ropivacaine (see comment for volume) (30cc plus decadrone 8 cc)
--- NOTE | 2024-06-27 07:33 | P.ANPRN ---
Procedure Note - Anesthesia - Invasive Line Right Arterial Line Date of Procedure: 06/27/24 Time of Procedure: 06:56 Location of Patient: PreOp Preparation: Sterile Prep Arterial Line Location: Radial Ultrasound Used: No Narrative: Invasive line placement per sterile protocol utilized.
[2024-06-27] MEDS: BUPIVACAINE (PF) 0.5% 30 ML VIAL SQ ONE ×3 (07:35→10:36)
[2024-06-27] MEDS: LACTATED RINGERS 1,000 ML IV ONE (10:35)
[2024-06-27] MEDS ORDERED: IPRATROPIUM-ALBUTEROL 3 ML NEB IH PRN (10:53)
[2024-06-27] MEDS ORDERED: METOCLOPRAMIDE 5 MG/ML 2 ML VIAL IVP PRN (10:53)
[2024-06-27] MEDS ORDERED: traMADol 50 MG TAB PO PRN (10:53)
[2024-06-27] MEDS ORDERED: bisacodyL 10 MG SUPP RECTAL PRN (10:53)
--- NOTE | 2024-06-27 11:22 | OP ---
OPERATIVE REPORT DATE OF SERVICE : 06/27/2024 PREOPERATIVE DIAGNOSIS: Right upper lobe lung carcinoma. POSTOPERATIVE DIAGNOSIS: Right upper lobe lung carcinoma. OPERATIVE PROCEDURE: Robotic-assisted thoracoscopic right upper lobectomy with mediastinal lymph node dissection. CLINICAL ESTHETICIAN: Ramana Vega MD ANESTHESIA: General endotracheal by Dr. Robin. INDICATIONS: The patient initially presented with a right upper lobe mass. She was seen by Dr. Horta. He is concerned that she might have some disease involving the right middle lobe and decided to send her for neoadjuvant therapy. She underwent several courses of neoadjuvant chemo and immunotherapy with an excellent response. Repeat CT scan was performed in the interim. Dr. Horta left [place]. She was referred to me. We had a little delay because of the computer breakdown and I was unable to review her studies until the computer started working again, but I reviewed her studies. I recommended a right upper lobectomy and she was scheduled electively. PROCEDURE IN DETAIL: The patient was brought to the operating room, placed supine on the operating table. Anesthetized and intubated with a double lumen endotracheal tube. Tube was positioned with fiberoptic bronchoscope. The patient was turned in the left lateral decubitus position and appropriately positioned for a robotic lobectomy. Right chest was sterilely prepped and draped. Single lung ventilation was initiated and robotic ports were placed. An 8 mm plate port was placed in the 8th interspace in the midaxillary line. Two 12 mm ports were placed anterior and posterior to this one and a second 8 mm port was placed posteriorly in the 4th interspace. Working port was placed in the 10th interspace anteriorly. On exploration of the chest, there were some adhesions of the upper lobe to the mediastinal pleura medially. The fissures were partial and incomplete. I started taking down the inferior pulmonary ligament and dissected out to the paraesophageal and subcarinal lymph nodes. In dissecting these out, the patient acutely became bradycardic with complete heart block and associated hypotension. We ceased the operation, went on two lung ventilation. The patient was treated medically and recuperated. Discussion was held between Surgery and Anesthesia, and it was decided to proceed with the operation at that point as we had further problems. Single lung ventilation was again initiated and we continued the dissection of the RA and level 7 lymph nodes. We then carried the dissection anteriorly onto the bronchus intermedius resecting R11 lymph nodes. There was a small branch of the pulmonary vein extending from the upper lobe to the superior segment of the lower lobe and this was taken with a robotic vascular stapler. We then were able to encircle the right upper lobe bronchus and ligated and divided with a robotic green stapler. Further lymph nodes in the hilum were resected and sent as R11 nodes and then we took the dissection anteriorly. Superior pulmonary vein was dissected out and branches draining the middle lobe were identified and spared. We encircled the branches draining the upper lobe and ligated and divided them with a single firing of a robotic vascular stapler. Dissection was now carried down to 2 large branches of the pulmonary artery leading to the right upper lobe and these were taken with 2 firings of Endo robotic vascular stapler. There were 2 very small branches of the pulmonary arteries leading to the upper lobe and these were ligated and divided with a vessel sealer. Remaining hilar nodes were now resected, sent as R11 lymph nodes. We now were able to be easily complete the fissure with multiple firings of a robotic blue stapler and the lobe was completely freed. Adhesions to the mediastinal pleura had been taken down with electrocautery and the superior pleural reflection had been taken down with electrocautery. The lobe was placed in EndoCatch bag and pulled back into the working port. We now resected the R10 and R4 lymph nodes. Hemostasis of the chest wall at the site of the adhesions was touched up with some electrocautery. A 24-Bruneian chest tube was placed through the superior incision and brought out posterior atypically. Chest was irrigated and checked for air leak. The irrigation was then suctioned out and the lung was reinflated again. Incisions were closed with layers of Vicryl suture. The patient was turned supine, extubated, and transferred to the recovery room in stable condition. MMODL / IJN: [id number] /
[2024-06-27] MEDS: MEPERIDINE 50 MG/ML SYRINGE IVP STA (11:39)
--- NOTE | 2024-06-27 11:40 | XR ---
EXAMINATION TYPE: XR chest 1V portable DATE OF EXAM: 06/27/2024 HISTORY: Shortness of breath. COMPARISON: 02/07/2024 TECHNIQUE: Single view of the chest is submitted. FINDINGS: Demonstrated are scattered senescent parenchymal change. Patchy infiltrate left lower lobe may reflect developing pneumonia. Correlate clinically. The heart is stable. Hilar and mediastinal structures are within normal limits. Degenerative changes are seen of the dorsal spine. IMPRESSION: 1. Patchy infiltrate left lower lobe may reflect developing pneumonia. Correlate clinically.
[2024-06-27] MEDS: ACETAMINOPHEN IV (For NPO) 1,000 MG in EMPTY BAG 1 BAG IVPB SCH (12:00)
[2024-06-27] MEDS: ACETAMINOPHEN IV (For NPO) 1,000 MG/100 ML VIAL IVPB ONE (13:11)
[2024-06-27 14:01] LABS: ABG Base Excess -1.2 mmol/L; ABG HCO3 25 mmol/L (21-25); ABG Oxygen Saturation 98.5 % (94-97); ABG PCO2 45 mmHg (35-45); ABG PH 7.35 (7.35-7.45); ABG PO2 100 mmHg (83-108); ABG TCO2 26 mmol/L (19-24); Allen Test Performed? Yes
--- NOTE | 2024-06-27 14:59 | P.CRDCN ---
History of Present Illness Consult date: 06/27/24 History of present illness: The patient is a pleasant 64-year-old female patient with recent diagnosis of lung cancer as well as hypertension and dyslipidemia and thyroid disease and obesity. The patient was admitted to the hospital and she underwent right upper lobectomy with lymph node dissection. The procedure itself was uneventful. Apparently by the end of the procedure there was difficulty ventilating the patient and the patient was hypoxic for short period of time and also she was bradycardic with heart rate in the 20s. She recovered quickly. Subsequently the patient was transferred to recovery and we consulted to see the patient for further evaluation of bradycardia. She has not been bradycardic through her hospital stay in the recovery. She reports no prior cardiovascular symptoms of chest pain or chest discomfort or shortness of breath or dizziness or lightheadedness or any feeling of heart racing or fluttering or presyncope or syncope. She does have multiple risk factor including hypertension and dyslipidemia. Recent stress test showed no evidence of ischemia. When she was seen and evaluated this morning she is in a pain and she was also slightly hypertensive likely secondary to the pain. Please note that the patient was not on any AV miladis elmer agents. The physical examination is remarkable for patient in mild distress because of the pain and also she has a regular rate and rhythm with a soft systolic murmur at the right upper sternal border with clear breathing sounds bilaterally noted. Assessment Status post right upper lobectomy for lung cancer Difficulty ventilation throughout the procedure associated with hypoxemia and bradycardia which was very transient Hypertension Dyslipidemia Thyroid disease Plan The patient has not been bradycardic in the recovery Rule out any thyroid disease by obtaining TSH and free T4 Rule out acute coronary event. Obtaining serial cardiac enzymes Avoid any AV miladis elmer agents Obtain an echocardiogram with Doppler Follow-up with any more episode of bradycardia Follow-up with the patient Past Medical History Past Medical History: Asthma, Cancer, COPD, Hyperlipidemia, Hypertension, Skin Disorder, Thyroid Disorder Additional Past Medical History / Comment(s): Pinched Nerve in lower hip, lung cancer right side, pet scan ct mri emphysema, dark spots to back and abdomen aging spots, hematemesis when first diagnosed w/ lung cancer History of Any Multi-Drug Resistant Organisms: None Reported Past Surgical History: Adenoidectomy, Back Surgery, Cholecystectomy, Hysterectomy, Tonsillectomy Additional Past Surgical History / Comment(s): colonoscopy/egd, anterior cervical surgery w/ plates/screws Past Anesthesia/Blood Transfusion Reactions: No Reported Reaction Additional Past Anesthesia/Blood Transfusion Reaction / Comment(s): no blood transfusion Smoking Status: Former smoker - Past Family History Mother Additional Family Medical History / Comment(s): septic Medications and Allergies Home Medications Medication Instructions Recorded Confirmed Type Furosemide [Lasix] 40 mg PO DAILY 12/19/15 06/26/24 History HYDROcodone/APAP 7.5-325MG [[place] 1 tab PO TID PRN 12/19/15 06/26/24 History 7.5-325] Levothyroxine Sodium 100 mcg PO DAILY 02/06/24 06/27/24 History Omeprazole 40 mg PO DAILY 02/06/24 06/26/24 History Pramipexole [Mirapex] 0.125 mg PO HS 02/06/24 06/26/24 History Rosuvastatin [Crestor] 40 mg PO DAILY 02/06/24 06/26/24 History hydrOXYzine HCL [Hydroxyzine HCl] 25 mg PO TID PRN 02/06/24 06/26/24 History Ondansetron [Zofran] 1 - 2 tab PO Q8HR PRN 06/26/24 06/26/24 History Allergies Allergy/AdvReac Type Severity Reaction Status Date / Time cephalexin monohydrate Allergy Anaphylaxis Verified 06/27/24 05:54 [From Keflex] Physical Exam Vitals: Vital Signs Temp Pulse Pulse Resp BP BP BP 06/27/24 14:30 68 18 133/60 06/27/24 14:00 72 20 142/66 06/27/24 13:45 79 20 144/60 06/27/24 13:30 76 17 149/66 06/27/24 13:20 79 13 150/65 06/27/24 13:00 79 14 158/67 06/27/24 12:46 77 12 142/88 155/79 06/27/24 12:31 74 12 142/92 149/82 06/27/24 12:11 76 14 139/84 146/81 06/27/24 11:54 87 16 143/68 148/84 06/27/24 11:45 90 17 143/68 144/88 06/27/24 11:30 96 18 143/73 138/76 06/27/24 11:15 98 18 131/77 122/68 06/27/24 11:06 97.3 F L 91 14 164/74 06/27/24 07:18 65 18 153/115 06/27/24 06:08 97.7 F 59 L 18 149/87 BP BP Pulse Ox 06/27/24 14:30 97 06/27/24 14:00 186/93 97 06/27/24 13:45 174/85 98 06/27/24 13:30 98 06/27/24 13:20 110/93 06/27/24 13:00 99 06/27/24 12:46 99 06/27/24 12:31 99 06/27/24 12:11 100 06/27/24 11:54 99 06/27/24 11:45 100 06/27/24 11:30 100 06/27/24 11:15 97 06/27/24 11:06 100 06/27/24 07:18 99 06/27/24 06:08 98 Intake and Output 06/26/24 06/27/24 06/27/24 22:59 06:59 14:59 Intake Total 200 2556 Output Total 600 Balance 200 1956 Intake: IV 200 2556 Output: Urine 550 Estimated Blood Loss 50 Other: Weight 75.1 kg Results Current Medications Generic Name Dose Route Start Last Admin Trade Name Freq PRN Reason Stop Dose Admin Acetaminophen 1,000 mg 06/28/24 00:01 Acetaminophen Tab 500 Mg Tab PO Q4HR PRN Mild to Moderate Pain (1 - 6) Albuterol/Ipratropium 3 ml 06/27/24 10:53 Ipratropium-Albuterol 3 Ml Neb IH RT-Q1H PRN Shortness Of Breath Or Wheezing Albuterol/Ipratropium 3 ml 06/27/24 12:00 Ipratropium-Albuterol 3 Ml Neb IH RT-QID BUDDY Atorvastatin Calcium 40 mg 06/28/24 09:00 Atorvastatin 40 Mg Tab PO DAILY BUDDY Bisacodyl 10 mg 06/27/24 10:53 Bisacodyl 10 Mg Supp RECTAL DAILY PRN Constipation Formoterol Fumarate 20 mcg 06/27/24 20:00 Formoterol Fumarate 20 Mcg/2 Ml Nebu INHALATION RT-BID BUDDY Furosemide 40 mg 06/28/24 09:00 Furosemide 40 Mg Tab PO DAILY [facility] Heparin Sodium (Porcine) 5,000 unit 06/27/24 16:00 Heparin Sodium,Porcine 5,000 Unit/Ml 1 Ml Vial SQ Q8HR [facility] Clindamycin Phosphate 900 mg/ 56 mls @ 50 mls/hr 06/27/24 16:00 Dextrose/Water IVPB 06/28/24 01:08 Q8HR [facility] Protocol Dextrose/Sodium Chloride 1,000 mls @ 45 mls/hr 06/27/24 11:00 Dextrose 5%-1/2ns Iv Soln IV 06/28/24 04:59 .[id number] [facility] Acetaminophen 1,000 mg/ IV 100 mls @ 400 mls/hr 06/27/24 12:00 Solution IVPB 06/27/24 18:01 Q6HR [facility] Levothyroxine Sodium 100 mcg 06/28/24 09:00 Levothyroxine 100 Mcg Tab PO DAILY [facility] Methocarbamol 1,000 mg 06/27/24 13:43 Methocarbamol 500 Mg Tab PO QID PRN Muscle Spasm Metoclopramide HCl 10 mg 06/27/24 10:53 Metoclopramide 5 Mg/Ml 2 Ml Vial IVP Q4HR PRN Nausea And Vomiting Ondansetron HCl 4 mg 06/27/24 10:53 Ondansetron 4 Mg/2 Ml Vial IVP Q8HR PRN Nausea And Vomiting Pramipexole Dihydrochloride 0.125 mg 06/28/24 21:00 Pramipexole 0.125 Mg Tab PO HS [facility] Tramadol HCl 50 mg 06/27/24 10:53 Tramadol 50 Mg Tab PO QID PRN Severe Pain (Scale 7 to 10) Intake and Output 06/26/24 06/27/24 06/27/24 22:59 06:59 14:59 Intake Total 200 2556 Output Total 600 Balance 200 1956 Intake: IV 200 2556 Output: Urine 550 Estimated Blood Loss 50 Other: Weight 75.1 kg
[2024-06-27] MEDS: methocarbamoL 500 MG TAB PO STA (15:34)
[2024-06-27 16:22] LABS: Glucose,Whole Blood 183 mg/dL (70-110)
--- NOTE | 2024-06-27 16:32 | P.CNPUL ---
History of Present Illness Consult date: 06/27/24 Requesting physician: Ruben Yusuf Reason for consult: other (Status post robotic assisted thoracoscopic right upper lobectomy with mediastinal lymph node dissection) Chief complaint: History of lung cancer/right upper lobe lung cancer History of present illness: This is a 64-year-old female with right upper lobe adenocarcinoma patient had [id number] smoking history, hypertension, dyslipidemia, hypothyroidism, fibromyalgia, on 02/09/2023, patient had a 1 cm nodule in the right upper lobe, apparently the patient did not follow-up mostly because of insurance issues. On , patient had a PET scan revealed 3 cm tumor with possible 4R lymph node. Patient underwent biopsy on 12/18/2023, and she was found to have poorly differentiated adenocarcinoma. Patient had a repeat PET CT which revealed the nodule plus new inflammatory changes in both upper and middle lobes. Patient was initially referred to Dr. Horta, however since he saw her last on 01/29/2024, and he left [facility], patient was referred to Dr. Yusuf. Today the patient underwent robotic assisted thoracoscopic right upper lobectomy with mediastinal node dissection. Postoperatively we were asked to see the patient on [facility]. Patient had a follow-up chest x-ray which shows no evidence of pneumothorax, right-sided chest tube is in the proper position, patient does have air leak. Looking back on bronchoscopy done by Dr. Yusuf on 02/08/2024, patient had biopsies which showed poorly differentiated non-small cell carcinoma in the right upper lobe, she had negative station 7 and she also had negative right paratracheal 4R nodes. Review of Systems REVIEW OF SYSTEMS: CONSTITUTIONAL: Weakness and weight loss EYES: Negative. ENT: Negative. CARDIAC: Negative. PULMONARY: No cough no wheezing no shortness of breath GI: Negative. GENITOURINARY: Negative. MUSCULOSKELETAL: Negative. SKIN: Negative. NEUROPSYCH: Negative. ENDOCRINE: Negative. HEMATOLOGIC: Negative. Past Medical History Past Medical History: Asthma, Cancer, COPD, Hyperlipidemia, Hypertension, Skin Disorder, Thyroid Disorder Additional Past Medical History / Comment(s): Pinched Nerve in lower hip, lung cancer right side, pet scan ct mri emphysema, dark spots to back and abdomen aging spots, hematemesis when first diagnosed w/ lung cancer History of Any Multi-Drug Resistant Organisms: None Reported Past Surgical History: Adenoidectomy, Back Surgery, Cholecystectomy, Hysterectomy, Tonsillectomy Additional Past Surgical History / Comment(s): colonoscopy/egd, anterior cervical surgery w/ plates/screws Past Anesthesia/Blood Transfusion Reactions: No Reported Reaction Additional Past Anesthesia/Blood Transfusion Reaction / Comment(s): no blood transfusion Smoking Status: Former smoker - Past Family History Mother Additional Family Medical History / Comment(s): septic Medications and Allergies Home Medications Medication Instructions Recorded Confirmed Type Furosemide [Lasix] 40 mg PO DAILY 12/19/15 06/26/24 History HYDROcodone/APAP 7.5-325MG [Sula 1 tab PO TID PRN 12/19/15 06/26/24 History 7.5-325] Levothyroxine Sodium 100 mcg PO DAILY 02/06/24 06/27/24 History Omeprazole 40 mg PO DAILY 02/06/24 06/26/24 History Pramipexole [Mirapex] 0.125 mg PO HS 02/06/24 06/26/24 History Rosuvastatin [Crestor] 40 mg PO DAILY 02/06/24 06/26/24 History hydrOXYzine HCL [Hydroxyzine HCl] 25 mg PO TID PRN 02/06/24 06/26/24 History Ondansetron [Zofran] 1 - 2 tab PO Q8HR PRN 06/26/24 06/26/24 History Allergies Allergy/AdvReac Type Severity Reaction Status Date / Time cephalexin monohydrate Allergy Anaphylaxis Verified 06/27/24 05:54 [From Keflex] Physical Exam Vitals: Vital Signs Temp Pulse Pulse Resp BP BP BP 06/27/24 15:45 67 16 136/80 06/27/24 15:00 74 18 123/84 06/27/24 14:30 68 18 133/60 06/27/24 14:00 72 20 142/66 06/27/24 13:45 79 20 144/60 06/27/24 13:30 76 17 149/66 06/27/24 13:20 79 13 150/65 06/27/24 13:00 79 14 158/67 06/27/24 12:46 77 12 142/88 155/79 06/27/24 12:31 74 12 142/92 149/82 06/27/24 12:11 76 14 139/84 146/81 06/27/24 11:54 87 16 143/68 148/84 06/27/24 11:45 90 17 143/68 144/88 06/27/24 11:30 96 18 143/73 138/76 06/27/24 11:15 98 18 131/77 122/68 06/27/24 11:06 97.3 F L 91 14 164/74 06/27/24 07:18 65 18 153/115 06/27/24 06:08 97.7 F 59 L 18 149/87 BP BP Pulse Ox 06/27/24 15:45 149/84 100 06/27/24 15:00 168/80 100 06/27/24 14:30 97 06/27/24 14:00 186/93 97 06/27/24 13:45 174/85 98 06/27/24 13:30 98 06/27/24 13:20 110/93 06/27/24 13:00 99 06/27/24 12:46 99 06/27/24 12:31 99 06/27/24 12:11 100 06/27/24 11:54 99 06/27/24 11:45 100 06/27/24 11:30 100 06/27/24 11:15 97 06/27/24 11:06 100 06/27/24 07:18 99 06/27/24 06:08 98 Intake and Output 06/27/24 06/27/24 06/27/24 06:59 14:59 22:59 Intake Total 200 2556 Output Total 600 475 Balance 200 1956 -475 Intake: IV 200 2556 Output: Urine 550 475 Estimated Blood Loss 50 Other: Weight 75.1 kg General: Revealed a 64-year-old female in no distress, complaining of pain at the surgical site. Skin: Skin is warm and dry and no rashes or lesions are noted. Eye: Pupils are equal, round and reactive to light, extra-ocular movements are intact; there is normal conjunctiva bilaterally. Ears, nose, mouth and throat: There are moist mucous membranes and no oral lesions. Neck: The neck is supple, there is no tenderness or JVD. Cardiovascular: There is a regular rate and rhythm. No murmur, rub or gallop is appreciated. Respiratory: Diminished breath sound bilaterally, right-sided chest tube is noted, airleak is noted. Tube connected to Pleur-evac and on suction Gastrointestinal: Soft, non-distended, non-tender abdomen without masses or organomegaly noted. There is no rebound or guarding present. Bowel sounds are unremarkable. Back: There is no tenderness to palpation in the midline. There is no obvious deformity. Musculoskeletal: Normal ROM, no tenderness, There is no pedal edema. There is no calf tenderness or swelling. No cords were appreciated. Neurological: CN II-XII intact, Cranial nerves III through XII are intact. There are no obvious motor or sensory deficits. Coordination appears grossly intact. Speech is normal. Psychiatric: Cooperative, appropriate mood & affect, normal judgment. Results - Laboratory Findings ABG ABG pH 7.35 (7.35-7.45) 06/27/24 13:45 ABG pCO2 45 mmHg (35-45) 06/27/24 13:45 ABG pO2 100 mmHg (83-108) 06/27/24 13:45 ABG O2 Saturation 98.5 % (94-97) H 06/27/24 13:45 Abnormal lab findings: Abnormal Labs 06/27/24 13:45 ABG Total CO2 26 H ABG O2 Saturation 98.5 H - Diagnostic Findings Chest x-ray: image reviewed (As noted in HPI) Assessment and Plan Assessment: Impression: Status post robotic assisted right upper lobectomy and mediastinal node dissection postoperative day #0 History of right upper lobe adenocarcinoma, biopsy-proven from previous robotic Ion bronchoscopy and EBUS Dyslipidemia Benign essential hypertension Postoperative bradycardia being addressed by cardiology on the case, recommending avoiding any AV miladis elmer agents, echocardiogram and Doppler pending History of hypothyroidism History of fibromyalgia Recommendation: Continue postoperative routine orders Continue incentive spirometry Bronchodilators Early ambulation Avoid AV miladis blocking agents Continue chest tube to suction Daily x-rays of the chest Will continue to follow Time with Patient: Greater than 30
[2024-06-27] MEDS: HEPARIN SODIUM,PORCINE 5,000 UNIT/ML 1 ML VIAL SQ SCH (17:45)
[2024-06-27] MEDS: CLINDAMYCIN 900 MG in DEXTROSE 5% IN WATER 50 ML IVPB SCH (17:45)
[2024-06-27] MEDS: IPRATROPIUM-ALBUTEROL 3 ML NEB IH SCH (18:19)
[2024-06-27] MEDS: traMADol 50 MG TAB PO SCH (19:48)
[2024-06-27] MEDS: FORMOTEROL FUMARATE 20 MCG/2 ML NEBU INHALATION SCH (20:21)
[2024-06-27 20:31] LABS: Glucose,Whole Blood 156 mg/dL (70-110)
[2024-06-27] MEDS: DEXTROSE 5%-0.45% NACL 1,000 ML IV SCH (23:21)
[2024-06-28] MEDS: ACETAMINOPHEN TAB 500 MG TAB PO PRN (00:22)
[2024-06-28 04:00] LABS: Glucose,Whole Blood 138 mg/dL (70-110)
[2024-06-28 04:35] LABS: Anisocytosis Moderate; Basophils % (A) 0 %; Eosinophils % (A) 0 %; HCT 25.4 % (34.0-46.0); HGB 7.9 gm/dL (11.4-16.0); Hypochromasia Marked; Lymphocytes # (A) 1.1 k/uL (1.0-4.8); Lymphocytes % (A) 12 %; MCH 29.1 pg (25.0-35.0); MCV 93.8 fL (80.0-100.0); Macrocytosis Slight; Mean Platelet Volume 7.2; Monocytes # (A) 0.6 k/uL (0-1.0); Monocytes % (A) 6 %; Neutrophils % (A) 79 %; Platelet Count 287 k/uL (150-450); RBC 2.71 m/uL (3.80-5.40); RDW 20.1 % (11.5-15.5); WBC 8.8 k/uL (3.8-10.6)
[2024-06-28 04:48] LABS: African American GFR (CKD) 69 (>60 ml/min/1.73 sqM); Anion Gap 3 mmol/L; Blood Urea Nitrogen 16 mg/dL (7-17); Calcium 9.2 mg/dL (8.4-10.2); Carbon Dioxide 29 mmol/L (22-30); Chloride 104 mmol/L (98-107); Glucose 135 mg/dL (74-99); Non-African American GFR(CKD) 60 (>60 ml/min/1.73 sqM); Potassium 4.5 mmol/L (3.5-5.1); Sodium 136 mmol/L (137-145)
[2024-06-28] MEDS: LEVOTHYROXINE 100 MCG TAB PO SCH (05:50)
--- NOTE | 2024-06-28 06:55 | P.PN ---
Subjective Progress Note Date: 06/28/24 The patient is a pleasant 64-year-old female patient with recent diagnosis of lung cancer as well as hypertension and dyslipidemia and thyroid disease and obesity. The patient was admitted to the hospital and she underwent right upper lobectomy with lymph node dissection. The procedure itself was uneventful. Apparently by the end of the procedure there was difficulty ventilating the patient and the patient was hypoxic for short period of time and also she was bradycardic with heart rate in the 20s. She recovered quickly. Subsequently the patient was transferred to recovery and we consulted to see the patient for further evaluation of bradycardia. She has not been bradycardic through her hospital stay in the recovery. She reports no prior cardiovascular symptoms of chest pain or chest discomfort or shortness of breath or dizziness or lightheadedness or any feeling of heart racing or fluttering or presyncope or syncope. She does have multiple risk factor including hypertension and dysl ipidemia. Recent stress test showed no evidence of ischemia. When she was seen and evaluated this morning she is in a pain and she was also slightly hypertensive likely secondary to the pain. Please note that the patient was not on any AV miladis elmer agents. The physical examination is remarkable for patient in mild distress because of the pain and also she has a regular rate and rhythm with a soft systolic murmur at the right upper sternal border with clear breathing sounds bilaterally noted. June 28 2024 The patient was seen and evaluated this morning. Currently she is in the in tensive care unit. No more episode of bradycardia which I think all related to hypoxemia and difficulty ventilation. The echo and cardiac enzymes and TSH and free T4 are still pending. She is not on any AV miladis elmer agents. Examination is remarkable for regular rhythm with a soft systolic murmur and clear breathing sounds bilaterally and no edema was noted. Assessment Status post right upper lobectomy for lung cancer Difficulty ventilation throughout the procedure associated with hypoxemia and bradycardia which was very transient Hypertension Dyslipidemia Thyroid disease Plan The patient has not been bradycardic in the recovery Rule out any thyroid disease by obtaining TSH and free T4 Rule out acute coronary event. Obtaining serial cardiac enzymes Avoid any AV miladis elmer agents Obtain an echocardiogram with Doppler Follow-up with any more episode of bradycardia Follow-up with the patient Objective - Vital Signs Vital signs: Vital Signs Temp 98.3 F 06/28/24 04:00 Pulse 73 09/13/24 06:00 Resp 21 06/28/24 06:00 BP 119/76 06/28/24 06:00 Pulse Ox 98 06/28/24 06:00 FiO2 Intake & Output 06/27/24 06/27/24 06/28/24 06:59 18:59 06:59 Intake Total 200 3006 300 Output Total 1355 1160 Balance 200 1651 -860 Weight 75.1 kg 82 kg Intake: IV 200 2956 Intake, IV Titration 50 Amount Clindamycin 900 mg In 50 Dextrose 5% in Water 50 ml @ 50 mls/hr IVPB Q8H [facility] Rx#:[id number] Oral 300 Output: Drainage 100 180 Right Chest 100 180 Urine 1205 980 Estimated Blood Loss 50 Other: Voiding Method Indwelling Catheter ABP, PAP, CO, CI - Last Documented Arterial Blood Pressure 118/55 - Labs CBC & Chem 7: 06/28/24 04:25 06/28/24 04:25 Labs: Abnormal Lab Results - Last 24 Hours (Table) 06/27/24 06/27/24 06/27/24 Range/Units 13:45 16:20 20:29 RBC (3.80-5.40) m/uL Hgb (11.4-16.0) gm/dL Hct (34.0-46.0) % RDW (11.5-15.5) % ABG Total CO2 26 H (19-24) mmol/L ABG O2 Saturation 98.5 H (94-97) % Sodium (137-145) mmol/L Glucose (74-99) mg/dL POC Glucose (mg/dL) 183 H 156 H (70-110) mg/dL 06/28/24 06/28/24 06/28/24 Range/Units 03:57 04:25 04:25 RBC 2.71 L (3.80-5.40) m/uL Hgb 7.9 L (11.4-16.0) gm/dL Hct 25.4 L (34.0-46.0) % RDW 20.1 H (11.5-15.5) % ABG Total CO2 (19-24) mmol/L ABG O2 Saturation (94-97) % Sodium 136 L (137-145) mmol/L Glucose 135 H (74-99) mg/dL POC Glucose (mg/dL) 138 H (70-110) mg/dL
--- NOTE | 2024-06-28 08:10 | XR ---
EXAMINATION TYPE: XR chest 1V DATE OF EXAM: 06/28/2024 HISTORY: Shortness of breath. COMPARISON: 06/27/2024 TECHNIQUE: Single view of the chest is submitted. FINDINGS: Postoperative changes of right upper lobectomy. Chest tube is in place. Masslike density right suprah ilar region. No evidence for pneumothorax. Left lung is clear. There is no evidence for focal infiltrate. The heart is stable. Hilar and mediastinal structures are within normal limits. Degenerative changes are seen of the dorsal spine. IMPRESSION: 1. Stable postoperative change.
[2024-06-28] MEDS: FUROSEMIDE 40 MG TAB PO SCH (09:13)
[2024-06-28] MEDS: ATORVASTATIN 40 MG TAB PO SCH (09:13)
[2024-06-28] MEDS ORDERED: hydrOXYzine HCL 25 MG TAB PO PRN (09:34)
--- NOTE | 2024-06-28 09:36 | P.PN ---
Subjective Progress Note Date: 06/28/24 Principal diagnosis: Right upper lobe lung carcinoma, intraoperative bradycardia with complete heart block and associated hypotension. Past medical history significant for hyperte nsion, hyperlipidemia, hypothyroidism, asthma, COPD, depression, anxiety and a recent history of smoking cessation states she has been 169 days free of smoking. POD #1 robotic assisted thoracoscopic right upper lobectomy with mediastinal lymph node dissection. The patient was seen and examined in follow-up today June 28, 2024 at her bedside in the intensive care unit. She is currently sitting up to the bedside chair, is awake, alert, oriented x 3 and is in no acute apparent distress. She denies any complaints of shortness of breath at this time, although is complaining of some surgical type pain to her right chest and rating her pain 7- 8 out of 10 on the pain scale. Oxygen saturations are 98% on room air and she is achieving 1000 mL on her incentive spirometry with encouragement. Right pleural chest tube remains in place to low continuous wall suction -20 cm H2O. Intermittent airleak is present. Draining thin serosanguineous drainage with 180 mL output in the last 8 hours and 450 mL output since surgery. She remains hemodynamically stable and is currently on no inotropic or pressor support. Bedside telemetry is showing normal sinus rhythm with occasional PACs heart rate 69 bpm. Current blood pressure is 131/87. Chest x-ray and laboratory results were reviewed. Objective - Vital Signs Vital signs: Vital Signs Temp 98.3 F 06/28/24 04:00 Pulse 68 06/28/24 08:26 Resp 14 06/28/24 07:00 BP 128/80 06/28/24 07:00 Pulse Ox 98 06/28/24 07:00 FiO2 Intake & Output 06/27/24 06/28/24 06/28/24 18:59 06:59 18:59 Intake Total 3006 300 Output Total 1355 1160 90 Balance 1651 -860 -90 Weight 82 kg Intake: IV 2956 Intake, IV Titration 50 Amount Clindamycin 900 mg In 50 Dextrose 5% in Water 50 ml @ 50 mls/hr IVPB Q8H [facility] Rx#:[id number] Oral 300 Output: Drainage 100 180 Right Chest 100 180 Urine 1205 980 90 Estimated Blood Loss 50 Other: Voiding Method Indwelling Catheter ABP, PAP, CO, CI - Last Documented Arterial Blood Pressure 118/55 - Exam CONSTITUTIONAL: Appears comfortable, cooperative, no acute distress RESPIRATORY: Lungs sounds essentially clear throughout, diminished to her bilateral bases right greater than left. Respirations symmetrical, nonlabored. Currently on room air with oxygen saturation 98%. Able to achieve 1000 mL on incentive spirometry. Strong cough. CARDIOVASCULAR: S1, S2 present. Regular rate and rhythm, sinus rhythm on telemetry with occasional PACs. Palpable peripheral pulses bilaterally. No e brenden present. No calf pain or tenderness noted. SCDs present. GASTROINTESTINAL: Abdomen soft, nontender, nondistended. Active bowel sounds present 4 quadrants. Tolerating diet. Passing flatus. GENITOURINARY: Graham catheter is in place. 615 mL of urine output in the last 8 hours. INTEGUMENTARY: Skin is warm and dry with evidence of good perfusion. Right chest thoracic incision well approximated and covered with dry intact dressing. NEUROLOGIC: Cranial nerves II through XII intact. No focal deficits. MUSKULOSKELETAL: Able to move all extremities, strength equal bilaterally, gait normal. PSYCHIATRIC: Alert and oriented to person place and time, appropriate affect, intact judgment and insight INVASIVE LINES AND TUBES: Right pleural chest tube present and connected to wall suction, intermittent airleak is present. Right pleural chest tube with 180 mL serosanguineous drainage overnight, 450 mL in the last 24 hours. - Allied health notes Allied health notes reviewed: nursing - Labs CBC & Chem 7: 06/28/24 04:25 06/28/24 04:25 Labs: Abnormal Lab Results - Last 24 Hours (Table) 06/27/24 06/27/24 06/27/24 Range/Units 13:45 16:20 20:29 RBC (3.80-5.40) m/uL Hgb (11.4-16.0) gm/dL Hct (34.0-46.0) % RDW (11.5-15.5) % ABG Total CO2 26 H (19-24) mmol/L ABG O2 Saturation 98.5 H (94-97) % Sodium (137-145) mmol/L Glucose (74-99) mg/dL POC Glucose (mg/dL) 183 H 156 H (70-110) mg/dL Troponin I (0.000-0.034) ng/mL TSH (0.465-4.680) mIU/L 09/06/28/24 06/28/24 Range/Units 03:57 04:25 04:25 RBC 2.71 L (3.80-5.40) m/uL Hgb 7.9 L (11.4-16.0) gm/dL Hct 25.4 L (34.0-46.0) % RDW 20.1 H (11.5-15.5) % ABG Total CO2 (19-24) mmol/L ABG O2 Saturation (94-97) % Sodium 136 L (137-145) mmol/L Glucose 135 H (74-99) mg/dL POC Glucose (mg/dL) 138 H (70-110) mg/dL Troponin I (0.000-0.034) ng/mL TSH (0.465-4.680) mIU/L 06/28/24 06/28/24 Range/Units 07:00 07:00 RBC (3.80-5.40) m/uL Hgb (11.4-16.0) gm/dL Hct (34.0-46.0) % RDW (11.5-15.5) % ABG Total CO2 (19-24) mmol/L ABG O2 Saturation (94-97) % Sodium (137-145) mmol/L Glucose (74-99) mg/dL POC Glucose (mg/dL) (70-110) mg/dL Troponin I 4.250 H* (0.000-0.034) ng/mL TSH 0.247 L (0.465-4.680) mIU/L - Imaging and Cardiology Chest x-ray: report reviewed, image reviewed Assessment and Plan Assessment: Right upper lobe lung carcinoma, status post 4 chemotherapy treatments and 1 immunotherapy treatments, status post robotic assisted thoracoscopic right upper lobectomy with mediastinal lymph node dissection COPD with a preoperative FEV1 1.72 L 74% of predicted value Intraoperative bradycardia and hypotension, treated medically, patient recuperated with no further problems, currently normal sinus rhythm Elevated troponins, may be related to intraoperative bradycardia and hypotension History of hypertension History of hyperlipidemia Hypothyroidism Recent cessation of smoking, quit smoking 169 days ago Fibromyalgia Depression Anxiety Plan: Keep right pleural chest tube to low continuous wall suction -20 cm H2O. Monitor for airleak resolution. Encourage use of incentive spirometry 10 times every hour while awake. Continue to monitor daily chest x-rays. Out of bed for all meals. Encourage ambulation. Physical and Occupational Therapy consulted. Cardiology consult noted and appreciated. Will continue to follow transthoracic 2D echocardiogram results. Will continue to follow troponins. Aspirin 81 mg p.o. daily has been started. Continue statin. Surgical pathology results remain pending, will continue to follow pathology results. Pain management per current as needed orders. Remove arterial line and Graham catheter. More recommendations to follow based on patient's clinical course. Time with Patient: Greater than 30
[2024-06-28] MEDS: ASPIRIN 81 MG PO SCH (09:53)
[2024-06-28] MEDS: PANTOPRAZOLE 40 MG TABLET PO SCH (09:53)
[2024-06-28] MEDS: ONDANSETRON 4 MG/2 ML VIAL IVP PRN (09:53)
[2024-06-28] MEDS: methocarbamoL 500 MG TAB PO PRN (10:02)
--- NOTE | 2024-06-28 12:45 | P.PN ---
Subjective Progress Note Date: 06/28/24 Principal diagnosis: Status post robotic assisted right upper lobectomy and mediastinal node dissection postoperative day #1 This is a 64-year-old female with right upper lobe adenocarcinoma patient had [id number] smoking history, hypertension, dyslipidemia, hypothyroidism, f ibromyalgia, on 02/09/2023, patient had a 1 cm nodule in the right upper lobe, apparently the patient did not follow-up mostly because of insurance issues. On , patient had a PET scan revealed 3 cm tumor with possible 4R lymph node. Patient underwent biopsy on 12/18/2023, and she was found to have poorly differentiated adenocarcinoma. Patient had a repeat PET CT which revealed the nodule plus new inflammatory changes in both upper and middle lobes. Patient was initially referred to Dr. Horta, however since he saw her last on 01/29/2024, and he left town, patient was referred to Dr. Yusuf. Today the patient underwent robotic assisted thoracoscopic right upper lobectomy with mediastinal node dissection. Postoperatively we were asked to see the patient on consultation. Patient had a follow-up chest x-ray which shows no evidence of pneumothorax, right-sided chest tube is in the proper position, patient does have air leak. Looking back on bronchoscopy done by Dr. Yusuf on 02/08/2024, patient had biopsies which showed poorly differentiated non-small cell carcinoma in the right upper lobe, she had negative station 7 and she also had negative right paratracheal 4R nodes. Patient was seen and examined today on 06/28/2024, patient is now postoperative day #1, patient had robotic assisted thoracoscopic right upper lobectomy and mediastinal lymph node dissection seems to be doing well, she had lots of pain which is being handled with pain medications, apparently during the procedure patient had hypoxemia and bradycardia and that being addressed by cardiology/her bradycardia specifically, troponin is elevated, echocardiogram is pending, patient is being followed by Dr. Craven. Continues to have a chest tube in place, continues to have a minimal air leak, chest x-ray is reassuring, no evidence of pneumothorax. WBC count is 8.8 hemoglobin 7.9 electrolytes are normal renal profile is normal troponin today was 4.25, follow-up troponin was 3.26 Objective - Vital Signs Vital signs: Vital Signs Temp 98.4 F 06/28/24 12:00 Pulse 74 06/28/24 12:00 Resp 20 09/13/24 12:00 BP 121/89 06/28/24 12:00 Pulse Ox 95 06/28/24 12:00 FiO2 Intake & Output 06/27/24 06/28/24 06/28/24 18:59 06:59 18:59 Intake Total 3006 300 225 Output Total 1355 1160 1315 Balance 1651 -860 -1090 Weight 82 kg Intake: IV 2956 225 Dextrose 5%-0.45% NaCl 1, 225 000 ml @ 45 mls/hr IV . [id number] Rx#:[id number] Intake, IV Titration 50 Amount Clindamycin 900 mg In 50 Dextrose 5% in Water 50 ml @ 50 mls/hr IVPB Q8H [facility] Rx#:[id number] Oral 300 Output: Drainage 100 180 300 Right Chest 100 180 300 Urine [id number] Estimated Blood Loss 50 Other: Voiding Method Indwelling Catheter Indwelling Catheter ABP, PAP, CO, CI - Last Documented Arterial Blood Pressure 99/87 - Exam General: Revealed a 64-year-old female in no distress, on room air, O2 session 95% Skin: Skin is warm and dry and no rashes or lesions are noted. Eye: Pupils are equal, round and reactive to light, extra-ocular movements are intact; there is normal conjunctiva bilaterally. Ears, nose, mouth and throat: There are moist mucous membranes and no oral lesions. Neck: The neck is supple, there is no tenderness or JVD. Cardiovascular: There is a regular rate and rhythm. No murmur, rub or gallop is appreciated. Respiratory: Diminished breath sound bilaterally, right-sided chest tube is noted, airleak is noted. Tube connected to Pleur-evac and on suction Gastrointestinal: Soft, non-distended, non-tender abdomen without masses or organomegaly noted. There is no rebound or guarding present. Bowel sounds are unremarkable. Back: There is no tenderness to palpation in the midline. There is no obvious deformity. Musculoskeletal: Normal ROM, no tenderness, There is no pedal edema. There is no calf tenderness or swelling. No cords were appreciated. Neurological: CN II-XII intact, Cranial nerves III through XII are intact. There are no obvious motor or sensory deficits. Coordination appears grossly intact. Speech is normal. Psychiatric: Cooperative, appropriate mood & affect, normal judgment. - Labs CBC & Chem 7: 09/13/24 04:25 06/28/24 04:25 Labs: Abnormal Lab Results - Last 24 Hours (Table) 06/27/24 06/27/24 06/27/24 Range/Units 13:45 16:20 20:29 RBC (3.80-5.40) m/uL Hgb (11.4-16.0) gm/dL Hct (34.0-46.0) % RDW (11.5-15.5) % ABG Total CO2 26 H (19-24) mmol/L ABG O2 Saturation 98.5 H (94-97) % Sodium (137-145) mmol/L Glucose (74-99) mg/dL POC Glucose (mg/dL) 183 H 156 H (70-110) mg/dL Troponin I (0.000-0.034) ng/mL TSH (0.465-4.680) mIU/L 06/28/24 06/28/24 06/28/24 Range/Units 03:57 04:25 04:25 RBC 2.71 L (3.80-5.40) m/uL Hgb 7.9 L (11.4-16.0) gm/dL Hct 25.4 L (34.0-46.0) % RDW 20.1 H (11.5-15.5) % ABG Total CO2 (19-24) mmol/L ABG O2 Saturation (94-97) % Sodium 136 L (137-145) mmol/L Glucose 135 H (74-99) mg/dL POC Glucose (mg/dL) 138 H (70-110) mg/dL Troponin I (0.000-0.034) ng/mL TSH (0.465-4.680) mIU/L 06/28/24 06/28/24 06/28/24 Range/Units 07:00 07:00 10:44 RBC (3.80-5.40) m/uL Hgb (11.4-16.0) gm/dL Hct (34.0-46.0) % RDW (11.5-15.5) % ABG Total CO2 (19-24) mmol/L ABG O2 Saturation (94-97) % Sodium (137-145) mmol/L Glucose (74-99) mg/dL POC Glucose (mg/dL) (70-110) mg/dL Troponin I 4.250 H* 3.260 H* (0.000-0.034) ng/mL TSH 0.247 L (0.465-4.680) mIU/L Assessment and Plan Assessment: Impression: Status post robotic assisted right upper lobectomy and mediastinal node dissection postoperative day #1 History of right upper lobe adenocarcinoma, biopsy-proven from previous robotic Ion bronchoscopy and EBUS Dyslipidemia Benign essential hypertension Postoperative bradycardia being addressed by cardiology History of hypothyroidism History of fibromyalgia Recommendation: Continue incentive spirometry Continue chest tube to suction Continue bronchodilators Continue incentive spirometry Continue to monitor in the ICU for today Will continue to follow, awaiting pathology which may not be available till next week Repeat chest x-ray in a.m. Time with Patient: Less than 30
[2024-06-28] MEDS ORDERED: HYDROcodone/APAP 7.5-325MG 1 EACH TAB PO PRN (13:53)
[2024-06-28] MEDS: PRAMIPEXOLE 0.125 MG TAB PO SCH (20:58)
--- NOTE | 2024-06-28 21:16 | P.CONS ---
History of Present Illness - Reason for Consult Consult date: 06/28/24 hx lung cancer, s/p RUL lobectomy Requesting physician: Kb Paz - Chief Complaint lobectomy, lung cancer - History of Present Illness Patient is a 64 year old female with a history of lung cancer. She follows with Dr. Hogan. She initially had a CT scan of chest/abdomen/plevis on 02/08/2023 for abdominal pain at that time, which showed a 1.2 x 0.5 cm spiculated nodule in RUL of lung and 1.2 cm thin walled cyst in SANDIP,3 cm right adrenal lesion. She had a PET scan on 10/05/2023 which showed SUV of 6.5 in RUL lesion,otherwise negative,no uptake in right adrenal gland. She was seen by circular saw edge fuser at [facility]. On 12/18/2023,CT guided biopsy of RUL lung lesion was positive for invasive adenocarcinoma,TTF-1 positive,it was felt that tissue insufficient for molecular studies. NGS and PDL-1 could not be done on above tissue. On 01/25/2024,repeat PET scan showed increasing size of RUL mass to 29x23 mm ground glass,infiltrate changes occupying RUL and extending to middle lobe, borderline mediastinal node. She was evaluated by Dr condon,thoracic surgery,felt not candidate for surgery at this time,plan for possible neoadjuvant therapy. She underwent EBUS on 02/07/2024,FNA of mediastinal node was negative. Liquid biopsy showed KRAS G12C. NGS on tissues showed KRAS G12C,TP53,high TMD,HENRRY, PDL-1 80%. She completed 4 cycle of neoadjuvant carbo/alimta and keytruda on 05/20/24. Repeat CT chest on 05/02/2024 showed significant response. She was revaluted by CTS, and was scheduled for right upper lobectomy on 06/27/[address] Yusuf. Plan is to continue on keytruda once recovered from surgery. Patient is s/p right upper lobectomy with lymph node dissection. On review of notes, it appears patient became hypoxic and bradycardic, with HR in 20s after surgery, at which time she was transferred to the ICU. At todays visit, pt reports significant pain at insertion site of chest tube, stating current pain meds are not helping with pain. HDS, afebrile, SPO2 97% on room air. Labs showing, WBC 8.8, Hgb 7.9, MCV 93.8, MCH 29.1, plt 287. CXR today showing stable postoperative changes. Review of Systems 10 point ROS is negative except as stated in the HPI Past Medical History Past Medical History: Asthma, Cancer, COPD, Hyperlipidemia, Hypertension, Skin Disorder, Thyroid Disorder Additional Past Medical History / Comment(s): Pinched Nerve in lower hip, lung cancer right side, pet scan ct mri emphysema, dark spots to back and abdomen aging spots, hematemesis when first diagnosed w/ lung cancer History of Any Multi-Drug Resistant Organisms: None Reported Past Surgical History: Adenoidectomy, Back Surgery, Cholecystectomy, Hysterectomy, Tonsillectomy Additional Past Surgical History / Comment(s): colonoscopy/egd, anterior cervical surgery w/ plates/screws Past Anesthesia/Blood Transfusion Reactions: No Reported Reaction Additional Past Anesthesia/Blood Transfusion Reaction / Comm: no blood transfusion Smoking Status: Former smoker - Past Family History Mother Additional Family Medical History / Comment(s): septic Medications and Allergies Home Medications Medication Instructions Recorded Confirmed Type Furosemide [Lasix] 40 mg PO DAILY 12/19/15 06/26/24 History HYDROcodone/APAP 7.5-325MG [Swanquarter 1 tab PO TID PRN 12/19/15 06/26/24 History 7.5-325] Levothyroxine Sodium 100 mcg PO DAILY 02/06/24 06/27/24 History Omeprazole 40 mg PO DAILY 02/06/24 06/26/24 History Pramipexole [Mirapex] 0.125 mg PO HS 02/06/24 06/26/24 History Rosuvastatin [Crestor] 40 mg PO DAILY 02/06/24 06/26/24 History hydrOXYzine HCL [Hydroxyzine HCl] 25 mg PO TID PRN 02/06/24 06/26/24 History Ondansetron [Zofran] 1 - 2 tab PO Q8HR PRN 06/26/24 06/26/24 History Allergies Allergy/AdvReac Type Severity Reaction Status Date / Time cephalexin monohydrate Allergy Anaphylaxis Verified 06/27/24 05:54 [From Keflex] Physical Exam Vitals: Vital Signs Temp Pulse Pulse Resp BP BP BP 06/28/24 13:00 74 18 134/85 06/28/24 12:30 68 21 112/64 06/28/24 12:00 98.4 F 74 20 121/89 06/28/24 11:49 74 06/28/24 11:38 72 06/28/24 11:30 68 20 122/89 06/28/24 11:00 73 22 131/78 06/28/24 10:30 71 14 118/74 06/28/24 10:00 72 12 122/76 06/28/24 09:30 64 23 118/73 06/28/24 09:00 68 14 125/83 06/28/24 08:30 68 12 06/28/24 08:26 68 06/28/24 08:18 66 06/28/24 08:10 68 06/28/24 08:00 97.7 F 66 18 06/28/24 07:30 59 L 16 131/87 06/28/24 07:00 66 14 128/80 06/28/24 06:00 73 21 119/76 06/28/24 05:00 60 14 125/72 06/28/24 04:00 98.3 F 59 L 15 138/74 06/28/24 03:00 58 L 14 128/73 06/28/24 02:00 62 15 120/71 06/28/24 01:00 63 17 135/73 06/28/24 00:00 98 F 57 L 14 131/70 06/27/24 23:00 60 13 06/27/24 22:00 57 L 15 06/27/24 21:00 65 13 06/27/24 20:30 67 17 06/27/24 20:00 98.2 F 68 16 06/27/24 18:32 67 16 134/68 150/67 06/27/24 17:00 60 16 131/77 06/27/24 16:43 62 16 139/80 06/27/24 16:19 98.5 F 62 18 163/110 06/27/24 15:45 67 16 136/80 149/84 06/27/24 15:00 74 18 123/84 168/80 06/27/24 14:30 68 18 133/60 06/27/24 14:00 72 20 142/66 186/93 Pulse Ox 06/28/24 13:00 96 06/28/24 12:30 95 06/28/24 12:00 95 06/28/24 11:49 06/28/24 11:38 06/28/24 11:30 96 06/28/24 11:00 97 06/28/24 10:30 95 06/28/24 10:00 97 06/28/24 09:30 95 06/28/24 09:00 95 06/28/24 08:30 96 06/28/24 08:26 06/28/24 08:18 06/28/24 08:10 06/28/24 08:00 99 06/28/24 07:30 06/28/24 07:00 98 06/28/24 06:00 98 06/28/24 05:00 98 06/28/24 04:00 99 06/28/24 03:00 98 06/28/24 02:00 98 06/28/24 01:00 98 06/28/24 00:00 99 06/27/24 23:00 99 06/27/24 22:00 98 06/27/24 21:00 99 06/27/24 20:30 99 06/27/24 20:00 99 06/27/24 18:32 99 06/27/24 17:00 99 06/27/24 16:43 99 06/27/24 16:19 99 06/27/24 15:45 100 06/27/24 15:00 100 06/27/24 14:30 97 06/27/24 14:00 97 Intake and Output 06/27/24 06/28/24 06/28/24 22:59 06:59 14:59 Intake Total 350 270 Output Total 5334 660 3842 Balance -244 -491 -1091 Intake: IV 270 Dextrose 5%-0.45% NaCl 1, 270 000 ml @ 45 mls/hr IV . [id number] [facility] Rx#:[id number] Intake, IV Titration 50 Amount Clindamycin 900 mg In 50 Dextrose 5% in Water 50 ml @ 50 mls/hr IVPB Q8H [facility] Rx#:[id number] Oral 300 Output: Drainage 100 180 300 Right Chest 100 180 300 Urine [id number] Other: Voiding Method Indwelling Catheter Indwelling Catheter Indwelling Catheter Weight 82 kg ABP, PAP, CO, CI - Last 8 Hours Arterial Blood Pressure 99/87 Arterial Blood Pressure 127/47 Arterial Blood Pressure 124/48 Arterial Blood Pressure 137/53 Arterial Blood Pressure 142/62 Arterial Blood Pressure 131/126 - Constitutional General appearance: average body habitus, no acute distress - EENT Eyes: anicteric sclerae, EOMI ENT: hearing grossly normal - Respiratory Respiratory: right: diminished - Cardiovascular Rhythm: regular - Integumentary Integumentary: no cyanotic - Neurologic Neurologic: CNII-XII intact - Musculoskeletal Musculoskeletal: strength equal bilaterally - Psychiatric Psychiatric: A&O x's 3 Results CBC & Chem 7: 06/28/24 04:25 06/28/24 04:25 Labs: Abnormal Lab Results - Last 24 Hours (Table) 06/27/24 06/27/24 06/27/24 Range/Units 13:45 16:20 20:29 RBC (3.80-5.40) m/uL Hgb (11.4-16.0) gm/dL Hct (34.0-46.0) % RDW (11.5-15.5) % ABG Total CO2 26 H (19-24) mmol/L ABG O2 Saturation 98.5 H (94-97) % Sodium (137-145) mmol/L Glucose (74-99) mg/dL POC Glucose (mg/dL) 183 H 156 H (70-110) mg/dL Troponin I (0.000-0.034) ng/mL TSH (0.465-4.680) mIU/L 06/28/24 06/28/24 06/28/24 Range/Units 03:57 04:25 04:25 RBC 2.71 L (3.80-5.40) m/uL Hgb 7.9 L (11.4-16.0) gm/dL Hct 25.4 L (34.0-46.0) % RDW 20.1 H (11.5-15.5) % ABG Total CO2 (19-24) mmol/L ABG O2 Saturation (94-97) % Sodium 136 L (137-145) mmol/L Glucose 135 H (74-99) mg/dL POC Glucose (mg/dL) 138 H (70-110) mg/dL Troponin I (0.000-0.034) ng/mL TSH (0.465-4.680) mIU/L 06/28/24 06/28/24 06/28/24 Range/Units 07:00 07:00 10:44 RBC (3.80-5.40) m/uL Hgb (11.4-16.0) gm/dL Hct (34.0-46.0) % RDW (11.5-15.5) % ABG Total CO2 (19-24) mmol/L ABG O2 Saturation (94-97) % Sodium (137-145) mmol/L Glucose (74-99) mg/dL POC Glucose (mg/dL) (70-110) mg/dL Troponin I 4.250 H* 3.260 H* (0.000-0.034) ng/mL TSH 0.247 L (0.465-4.680) mIU/L Chest x-ray: report reviewed Assessment and Plan (1) Adenocarcinoma, lung Current Visit: Yes Status: Acute Priority: High Code(s): C34.90 - MALIGNANT NEOPLASM OF UNSP PART OF UNSP BRONCHUS OR LUNG SNOMED Code(s): 680890030 (2) Anemia Current Visit: Yes Status: Acute Priority: Medium Code(s): D64.9 - ANEMIA, UNSPECIFIED SNOMED Code(s): 518885203 Plan: Lung adenocarcinoma: -Oncology history and plan as dictated in the HPI -She completed 4 cycle of neoadjuvant carbo/alimta and keytruda on 05/20/24. Repeat CT chest on 05/02/2024 showed significant response. She was revaluated by CTS, and was scheduled for right upper lobectomy on 06/27/[address] Yusuf. Plan is to continue on keytruda once recovered from surgery -Patient underwent right upper lobectomy with lymph node dissection on 06/27/24. Pathology pending -C/o uncontrolled pain along right chest wall, at chest tube insertion site. Swanquarter 7.5mg prn added. Bowel regimen in place -Plan is continue on Keytruda once healed from surgery, which is typically 4-6 weeks post-op Above plan was discussed with pt and family. All questions and concerns addre ssed Anemia: -CBC showing, WBC 8.8, Hgb 7.9, MCV 93.8, MCH 29.1, plt 287. Hgb in clinic has typically been in 9 range -Anemia labs ordered -Likely multifactorial due to blood loss and inflammation s/p surgery -Continue to monitor CBC. Transfuse for hgb less than 7 or if symptomatic attests: I have seen and examined patient, performed H&P, developed impression and plan of care. Discussed with dictator. Agree with documentation, dictated as a scribe
[2024-06-29 04:42] LABS: Anisocytosis Moderate; HCT 26.1 % (34.0-46.0); HGB 8.2 gm/dL (11.4-16.0); Hypochromasia Marked; MCH 29.6 pg (25.0-35.0); MCHC 31.4 g/dL (31.0-37.0); MCV 94.1 fL (80.0-100.0); Macrocytosis Slight; Mean Platelet Volume 6.9; Platelet Count 296 k/uL (150-450); RBC 2.77 m/uL (3.80-5.40); RDW 20.1 % (11.5-15.5); WBC 9.5 k/uL (3.8-10.6)
[2024-06-29 05:01] LABS: ALT 38 U/L (4-34); AST 52 U/L (14-36); African American GFR (CKD) 60 (>60 ml/min/1.73 sqM); Albumin 3.5 g/dL (3.5-5.0); Alkaline Phosphatase 76 U/L (38-126); Anion Gap 7 mmol/L; Blood Urea Nitrogen 15 mg/dL (7-17); Calcium 9.2 mg/dL (8.4-10.2); Carbon Dioxide 29 mmol/L (22-30); Chloride 99 mmol/L (98-107); Glucose 118 mg/dL (74-99); Magnesium 1.7 mg/dL (1.6-2.3); Non-African American GFR(CKD) 52 (>60 ml/min/1.73 sqM); Potassium 3.6 mmol/L (3.5-5.1); Sodium 135 mmol/L (137-145); Total Bilirubin 0.6 mg/dL (0.2-1.3); Total Protein 5.7 g/dL (6.3-8.2)
[2024-06-29] MEDS ORDERED: Potassium Replacement Protocol 1 EACH MISC MISCELLANE PRN (05:32)
[2024-06-29] MEDS: POTASSIUM CHLORIDE ER 20 MEQ TAB.ER PO SCH (05:59)
[2024-06-29] MEDS ORDERED: Magnesium Replacement Protocol 1 EACH MISC MISCELLANE PRN (07:08)
--- NOTE | 2024-06-29 07:18 | XR ---
EXAMINATION TYPE: XR chest 1V portable DATE OF EXAM: 06/29/2024 6:03 AM CLINICAL INDICATION: Female, 64 years old with history of s/p right upper lobectomy; [facility] COMPARISON: Chest radiograph from one day prior. TECHNIQUE: XR chest 1V portable Frontal view of the chest. FINDINGS: Lungs/Pleura: There is no evidence of pleural effusion, focal consolidation, or left pneumothorax. Pulmonary vascularity: Unremarkable. Heart/mediastinum: Cardiomediastinal silhouette is enlarged. Musculoskeletal: No acute osseous pathology. Other findings: None Lines/Tubes: Right thoracotomy tube is present with small pneumothorax. IMPRESSION: Right thoracotomy tube with small pneumothorax.
--- NOTE | 2024-06-29 07:48 | P.PN ---
Subjective Progress Note Date: 06/29/24 Principal diagnosis: Right upper lobe lung carcinoma, intraoperative bradycardia with complete heart block and associated hypotension. Past medical history significant for hyperte nsion, hyperlipidemia, hypothyroidism, asthma, COPD, depression, anxiety and a recent history of smoking cessation states she has been 169 days free of smoking. POD #2 robotic assisted thoracoscopic right upper lobectomy with mediastinal lymph node dissection. The patient was seen and examined in follow-up today June 29, 2024 at her bedside in the intensive care unit. She is currently sitting up to the bedside chair, is awake, alert, oriented x 3 and is in no acute apparent distress. De nies any complaints of shortness of breath at this time, although is complaining of some surgical type pain to her right chest currently rating her pain 6 out of 10 on the pain scale. She states that the current pain medication regimen is helping her pain. Oxygen saturations are 97% on room air and she is achieving 1500 mL on her incentive spirometry with encouragement. Right pleural chest tube remains in place to waterseal. Intermittent airleak is present with talking and coughing. Draining thin serosanguineous drainage with 70 mL output in the last 8 hours and 300 mL output in the last 24 hours. She has been up ambulating in the intensive care unit hallway with standby assistance from nursing staff and tolerating well. Bedside telemetry showing normal sinus rhythm heart rate 67 bpm. Chest x-ray and laboratory results have been reviewed. Objective - Vital Signs Vital signs: Vital Signs Temp 98.1 F 06/29/24 04:00 Pulse 66 06/29/24 07:00 Resp 17 06/29/24 07:00 BP 123/73 06/29/24 07:00 Pulse Ox 96 06/29/24 07:00 FiO2 Intake & Output 06/28/24 06/29/24 06/29/24 18:59 06:59 18:59 Intake Total 860 240 Output Total 2175 1190 0 Balance -1315 -950 0 Weight 79 kg Intake: IV 360 Dextrose 5%-0.45% NaCl 1, 360 000 ml @ 45 mls/hr IV . [id number] [facility] Rx#:[id number] Oral 500 240 Output: Chest Tube Drainage 90 Chest Tube Right Pleural/ 90 Mediastinal Drainage 360 Right Chest 360 Urine 1815 1100 0 Other: Voiding Method Bedside Commode Bedside Commode # Voids 1 1 ABP, PAP, CO, CI - Last Documented Arterial Blood Pressure 99/87 - Exam CONSTITUTIONAL: Appears comfortable, cooperative, no acute distress RESPIRATORY: Lungs sounds essentially clear throughout, diminished to her bilateral bases right greater than left. Respirations symmetrical, nonlabored. Currently on room air with oxygen saturation 97%. Able to achieve 1500 mL on her incentive spirometry. Strong cough. CARDIOVASCULAR: S1, S2 present. Regular rate and rhythm, sinus rhythm on telemetry with occasional PACs heart rate in the 60s. Palpable peripheral pulses bilaterally. No edema present. No calf pain or tenderness noted. SCDs present. GASTROINTESTINAL: Abdomen soft, nontender, nondistended. Active bowel sounds present 4 quadrants. Tolerating diet. Passing flatus. GENITOURINARY: Continues to void. 1100 mL urine output in the last 8 hours. INTEGUMENTARY: Skin is warm and dry with no clubbing or cyanosis present. Right chest thoracic incision well approximated and covered with dry intact dressing. NEUROLOGIC: Cranial nerves II through XII intact. No focal deficits. MUSKULOSKELETAL: Able to move all extremities, strength equal bilaterally, gait normal. PSYCHIATRIC: Alert and oriented to person place and time, appropriate affect, intact judgment and insight INVASIVE LINES AND TUBES: Right pleural chest tube present and connected to wall suction, intermittent airleak is present. Right pleural chest tube with 70 mL serosanguineous drainage overnight, 300 mL in the last 24 hours. - Allied health notes Allied health notes reviewed: nursing - Labs CBC & Chem 7: 06/29/24 03:51 06/29/24 03:51 Labs: Abnormal Lab Results - Last 24 Hours (Table) 06/28/24 06/28/24 06/28/24 Range/Units 07:00 07:00 10:44 RBC (3.80-5.40) m/uL Hgb (11.4-16.0) gm/dL Hct (34.0-46.0) % RDW (11.5-15.5) % Sodium (137-145) mmol/L Creatinine (0.52-1.04) mg/dL Glucose (74-99) mg/dL AST (14-36) U/L ALT (4-34) U/L Troponin I 4.250 H* 3.260 H* (0.000-0.034) ng/mL Total Protein (6.3-8.2) g/dL TSH 0.247 L (0.465-4.680) mIU/L 06/28/24 06/29/24 06/29/24 Range/Units 15:03 03:51 03:51 RBC 2.77 L (3.80-5.40) m/uL Hgb 8.2 L (11.4-16.0) gm/dL Hct 26.1 L (34.0-46.0) % RDW 20.1 H (11.5-15.5) % Sodium 135 L (137-145) mmol/L Creatinine 1.14 H (0.52-1.04) mg/dL Glucose 118 H (74-99) mg/dL AST 52 H (14-36) U/L ALT 38 H (4-34) U/L Troponin I 2.870 H* (0.000-0.034) ng/mL Total Protein 5.7 L (6.3-8.2) g/dL TSH (0.465-4.680) mIU/L - Imaging and Cardiology Chest x-ray: report reviewed, image reviewed Assessment and Plan Assessment: Right upper lobe lung carcinoma, status post 4 chemotherapy treatments and 1 immunotherapy treatments, status post robotic assisted thoracoscopic right upper lobectomy with mediastinal lymph node dissection COPD with a preoperative FEV1 1.72 L 74% of predicted value Intraoperative bradycardia and hypotension, treated medically, patient recuperated with no further problems, currently normal sinus rhythm Elevated troponins, may be related to intraoperative bradycardia and hypotension History of hypertension History of hyperlipidemia Hypothyroidism Recent cessation of smoking, quit smoking 169 days ago Fibromyalgia Depression Anxiety Plan: Keep right pleural chest tube to waterseal. Continue to monitor for airleak resolution. Encourage use of incentive spirometry 10 times every hour while awake. Continue to monitor daily chest x-rays. Out of bed for all meals. Encourage ambulation. Physical and Occupational Therapy following. Patient has been up ambulating in the intensive care unit hallway and tolerating well. Cardiology consult noted and appreciated. Transthoracic 2D echocardiogram results remain pending. Continue aspirin 81 mg p.o. daily and statin. Surgical pathology results remain pending, will continue to follow pathology results. Pain management per current as needed orders. Transfer orders have been placed to the third floor cardiac stepdown unit. More recommendations to follow based on patient's clinical course. Time with Patient: Greater than 30
[2024-06-29] MEDS: MAGNESIUM SULFATE-D5W PMX 1 GM in DEXTROSE/WATER 1 100ML.BAG IVPB ONE (08:55)
[2024-06-29] MEDS: DOCUSATE 100 MG CAP PO SCH (08:56)
--- NOTE | 2024-06-29 11:07 | P.PN ---
Subjective Progress Note Date: 06/29/24 Principal diagnosis: Status post robotic assisted right upper lobectomy and mediastinal node dissection postoperative day #2 This is a 64-year-old female with right upper lobe adenocarcinoma patient had [id number] smoking history, hypertension, dyslipidemia, hypothyroidism, f ibromyalgia, on 02/09/2023, patient had a 1 cm nodule in the right upper lobe, apparently the patient did not follow-up mostly because of insurance issues. On , patient had a PET scan revealed 3 cm tumor with possible 4R lymph node. Patient underwent biopsy on 12/18/2023, and she was found to have poorly differentiated adenocarcinoma. Patient had a repeat PET CT which revealed the nodule plus new inflammatory changes in both upper and middle lobes. Patient was initially referred to Dr. Horta, however since he saw her last on 01/29/2024, and he left town, patient was referred to Dr. Yusuf. Today the patient underwent robotic assisted thoracoscopic right upper lobectomy with mediastinal node dissection. Postoperatively we were asked to see the patient on consultation. Patient had a follow-up chest x-ray which shows no evidence of pneumothorax, right-sided chest tube is in the proper position, patient does have air leak. Looking back on bronchoscopy done by Dr. Yusuf on 02/08/2024, patient had biopsies which showed poorly differentiated non-small cell carcinoma in the right upper lobe, she had negative station 7 and she also had negative right paratracheal 4R nodes. Patient was seen and examined today on 06/28/2024, patient is now postoperative day #1, patient had robotic assisted thoracoscopic right upper lobectomy and mediastinal lymph node dissection seems to be doing well, she had lots of pain which is being handled with pain medications, apparently during the procedure patient had hypoxemia and bradycardia and that being addressed by cardiology/her bradycardia specifically, troponin is elevated, echocardiogram is pending, patient is being followed by Dr. Craven. Continues to have a chest tube in place, continues to have a minimal air leak, chest x-ray is reassuring, no evidence of pneumothorax. WBC count is 8.8 hemoglobin 7.9 electrolytes are normal renal profile is normal troponin today was 4.25, follow-up troponin was 3.26 Patient was evaluated today on 06/29/2024, remains in the ICU, sitting at the bedside chair, does not seem to be in any distress, patient is doing well with incentive spirometry achieving over 1500 cc, small right-sided pneumothorax is noted, continues to have intermittent airleak. Chest tube is in place to waterseal. Had 300 mL output from the chest tube over the last 24 hours. Patient is ambulating with assistance. Overall the patient is doing well, pain is under control. Dynamically stable. WBC count is 9.5 hemoglobin 8.2 electrolytes are normal BUN is 15 creatinine 1.14 Objective - Vital Signs Vital signs: Vital Signs Temp 98.2 F 06/29/24 08:00 Pulse 74 06/29/24 09:00 Resp 19 06/29/24 09:00 BP 106/60 06/29/24 09:00 Pulse Ox 97 06/29/24 09:00 FiO2 Intake & Output 06/28/24 06/29/24 06/29/24 18:59 06:59 18:59 Intake Total 860 240 Output Total 2175 1190 0 Balance -1315 -950 0 Weight 79 kg Intake: IV 360 Dextrose 5%-0.45% NaCl 1, 360 000 ml @ 45 mls/hr IV . [id number] [facility] Rx#:[id number] Oral 500 240 Output: Chest Tube Drainage 90 Chest Tube Right Pleural/ 90 Mediastinal Drainage 360 Right Chest 360 Urine 1815 1100 0 Other: Voiding Method Bedside Commode Bedside Commode Bedside Commode # Voids 1 1 ABP, PAP, CO, CI - Last Documented Arterial Blood Pressure 99/87 - Exam General: Revealed a 64-year-old female in no distress, on room air, O2 session 95% Skin: Skin is warm and dry and no rashes or lesions are noted. Eye: Pupils are equal, round and reactive to light, extra-ocular movements are intact; there is normal conjunctiva bilaterally. Ears, nose, mouth and throat: There are moist mucous membranes and no oral lesions. Neck: The neck is supple, there is no tenderness or JVD. Cardiovascular: There is a regular rate and rhythm. No murmur, rub or gallop is appreciated. Respiratory: Diminished breath sound bilaterally, right-sided chest tube is note d, intermittent airleak noted Gastrointestinal: Soft, non-distended, non-tender abdomen without masses or organomegaly noted. There is no rebound or guarding present. Bowel sounds are unremarkable. Back: There is no tenderness to palpation in the midline. There is no obvious deformity. Musculoskeletal: Normal ROM, no tenderness, There is no pedal edema. There is no calf tenderness or swelling. No cords were appreciated. Neurological: CN II-XII intact, Cranial nerves III through XII are intact. There are no obvious motor or sensory deficits. Coordination appears grossly intact. Speech is normal. Psychiatric: Normal mood affect and no mental status examination. - Labs CBC & Chem 7: 06/29/24 03:51 06/29/24 03:51 Labs: Abnormal Lab Results - Last 24 Hours (Table) 06/28/24 06/28/24 06/29/24 Range/Units 10:44 15:03 03:51 RBC 2.77 L (3.80-5.40) m/uL Hgb 8.2 L (11.4-16.0) gm/dL Hct 26.1 L (34.0-46.0) % RDW 20.1 H (11.5-15.5) % Sodium (137-145) mmol/L Creatinine (0.52-1.04) mg/dL Glucose (74-99) mg/dL AST (14-36) U/L ALT (4-34) U/L Troponin I 3.260 H* 2.870 H* (0.000-0.034) ng/mL Total Protein (6.3-8.2) g/dL 06/29/24 Range/Units 03:51 RBC (3.80-5.40) m/uL Hgb (11.4-16.0) gm/dL Hct (34.0-46.0) % RDW (11.5-15.5) % Sodium 135 L (137-145) mmol/L Creatinine 1.14 H (0.52-1.04) mg/dL Glucose 118 H (74-99) mg/dL AST 52 H (14-36) U/L ALT 38 H (4-34) U/L Troponin I (0.000-0.034) ng/mL Total Protein 5.7 L (6.3-8.2) g/dL Assessment and Plan Assessment: Impression: Status post robotic assisted right upper lobectomy and mediastinal node dissection postoperative day #2 Postoperative small right-sided apical pneumothorax, expected History of right upper lobe adenocarcinoma, biopsy-proven from previous robotic Ion bronchoscopy and EBUS Dyslipidemia Benign essential hypertension Postoperative bradycardia being addressed by cardiology History of hypothyroidism History of fibromyalgia Recommendation: Continue incentive spirometry Continue chest tube, as long as there is an air leak. Continue bronchodilators Continue incentive spirometry Ambulate Will continue to follow Time with Patient: Less than 30
--- NOTE | 2024-06-29 11:24 | P.PN ---
Subjective Progress Note Date: 06/29/24 The patient is a pleasant 64-year-old female patient with recent diagnosis of lung cancer as well as hypertension and dyslipidemia and thyroid disease and obesity. The patient was admitted to the hospital and she underwent right upper lobectomy with lymph node dissection. The procedure itself was uneventful. Apparently by the end of the procedure there was difficulty ventilating the patient and the patient was hypoxic for short period of time and also she was bradycardic with heart rate in the 20s. She recovered quickly. Subsequently the patient was transferred to recovery and we consulted to see the patient for further evaluation of bradycardia. She has not been bradycardic through her hospital stay in the recovery. She reports no prior cardiovascular symptoms of chest pain or chest discomfort or shortness of breath or dizziness or lightheadedness or any feeling of heart racing or fluttering or presyncope or syncope. She does have multiple risk factor including hypertension and dysl ipidemia. Recent stress test showed no evidence of ischemia. When she was seen and evaluated this morning she is in a pain and she was also slightly hypertensive likely secondary to the pain. Please note that the patient was not on any AV miladis elmer agents. The physical examination is remarkable for patient in mild distress because of the pain and also she has a regular rate and rhythm with a soft systolic murmur at the right upper sternal border with clear breathing sounds bilaterally noted. June 28 2024 The patient was seen and evaluated this morning. Currently she is in the in tensive care unit. No more episode of bradycardia which I think all related to hypoxemia and difficulty ventilation. The echo and cardiac enzymes and TSH and free T4 are still pending. She is not on any AV miladis elmer agents. Examination is remarkable for regular rhythm with a soft systolic murmur and clear breathing sounds bilaterally and no edema was noted. June 29, 2024 The patient was seen and evaluated this morning. She is asymptomatic in terms of chest pain or chest discomfort of course beside the previous chest discomfort from the surgery no shortness of breath or dizziness. She is hemodynamically stable. She is on aspirin and she is on a statin. I would avoid any beta- elmer in the light of recent bradycardia. Beside that she cannot take any IV heparin after we check with the surgical team yesterday with the echo still pending. Examination is remarkable for regular rhythm with a soft systolic murmur and clear breathing sounds bilaterally and no edema was noted in the lower extremities Assessment Evidence of myocardial injury could be secondary to type II myocardial infarction and secondary to hypoxemia during surgery Status post right upper lobectomy for lung cancer Difficulty ventilation throughout the procedure associated with hypoxemia and bradycardia which was very transient Hypertension Dyslipidemia Thyroid disease Plan Continue aspirin and statin Follow-up on the echocardiogram Further recommendation to follow Follow-up with the patient Objective - Vital Signs Vital signs: Vital Signs Temp 98.2 F 06/29/24 08:00 Pulse 74 06/29/24 09:00 Resp 19 06/29/24 09:00 BP 106/60 06/29/24 09:00 Pulse Ox 97 06/29/24 09:00 FiO2 Intake & Output 06/28/24 06/29/24 06/29/24 18:59 06:59 18:59 Intake Total 860 240 Output Total 2175 1190 0 Balance -1315 -950 0 Weight 79 kg Intake: IV 360 Dextrose 5%-0.45% NaCl 1, 360 000 ml @ 45 mls/hr IV . [id number] [facility] Rx#:[id number] Oral 500 240 Output: Chest Tube Drainage 90 Chest Tube Right Pleural/ 90 Mediastinal Drainage 360 Right Chest 360 Urine 1815 1100 0 Other: Voiding Method Bedside Commode Bedside Commode Bedside Commode # Voids 1 1 ABP, PAP, CO, CI - Last Documented Arterial Blood Pressure 99/87 - Labs CBC & Chem 7: 06/29/24 03:51 06/29/24 03:51 Labs: Abnormal Lab Results - Last 24 Hours (Table) 06/28/24 06/28/24 06/29/24 Range/Units 10:44 15:03 03:51 RBC 2.77 L (3.80-5.40) m/uL Hgb 8.2 L (11.4-16.0) gm/dL Hct 26.1 L (34.0-46.0) % RDW 20.1 H (11.5-15.5) % Sodium (137-145) mmol/L Creatinine (0.52-1.04) mg/dL Glucose (74-99) mg/dL AST (14-36) U/L ALT (4-34) U/L Troponin I 3.260 H* 2.870 H* (0.000-0.034) ng/mL Total Protein (6.3-8.2) g/dL 06/29/24 Range/Units 03:51 RBC (3.80-5.40) m/uL Hgb (11.4-16.0) gm/dL Hct (34.0-46.0) % RDW (11.5-15.5) % Sodium 135 L (137-145) mmol/L Creatinine 1.14 H (0.52-1.04) mg/dL Glucose 118 H (74-99) mg/dL AST 52 H (14-36) U/L ALT 38 H (4-34) U/L Troponin I (0.000-0.034) ng/mL Total Protein 5.7 L (6.3-8.2) g/dL
--- NOTE | 2024-06-29 16:11 | CA ---
Transthoracic Echo Report Name: Maisha Stephen Age: 64 Gender: F : 1960 Exam Date: 06/28/2024 14:19 Exam Location: [place] [facility] Ht (in): 62 Wt (lb): 165 Ordering Physician: Humza Paetl MD ([id number]) Attending/Referring Phys: Radiology Nurse Regina Roger RDCS Procedure CPT: Indications: Bradycardia Cardiac Hx: Technical Quality: Technically difficult study Contrast 1: Definity Total Dose (mL): 2 Contrast 2: Total Dose (mL): MEASUREMENTS (Male / Female) Normal Values 2D ECHO LV Diastolic Diameter PLAX 4.9 cm 4.2 - 5.9 / 3.9 - 5.3 cm LV Systolic Diameter PLAX 3.4 cm IVS Diastolic Thickness 0.9 cm 0.6 - 1.0 / 0.6 - 0.9 cm LVPW Diastolic Thickness 1.0 cm 0.6 - 1.0 / 0.6 - 0.9 cm LV Relative Wall Thickness 0.4 LVOT Diameter 2.5 cm LV Diastolic Volume MOD BP 99.5 cm??? 67 - 155 / 56 - 104 cm??? LV Systolic Volume MOD BP 43.2 cm??? 22 - 58 / 19 - 49 cm??? LV Ejection Fraction MOD BP 56.6 % >= 55 % LV Cardiac Index MOD BP 2057.8 cm???/min???m??? LV Diastolic Volume MOD 4C 97.7 cm??? LV Systolic Volume MOD 4C 44.2 cm??? LV Ejection Fraction MOD 4C 54.8 % LV Cardiac Index MOD 4C 1953.2 cm???/min???m??? LV Diastolic Length 4C 8.1 cm LV Systolic Length 4C 6.9 cm LV Diastolic Volume MOD 2C 100.8 cm??? LV Systolic Volume MOD 2C 40.5 cm??? LV Ejection Fraction MOD 2C 59.8 % LV Cardiac Index MOD 2C 2199.2 cm???/min???m??? LV Diastolic Length 2C 8.2 cm LV Systolic Length 2C 6.5 cm Ascending Aorta Diameter 4.0 cm DOPPLER AV Peak Velocity 113.2 cm/s AV Peak Gradient 5.1 mmHg AV Mean Velocity 74.2 cm/s AV Mean Gradient 2.6 mmHg AV Velocity Time Integral 22.2 cm LVOT Peak Velocity 108.5 cm/s LVOT Peak Gradient 4.7 mmHg LVOT Velocity Time Integral 20.6 cm LVOT Stroke Volume 105.0 cm??? LVOT Stroke Volume Index 59.6 ml/m??? LVOT Cardiac Index 3832.3 cm???/min???m??? AV Area Cont Eq vti 4.7 cm??? AV Area Cont Eq pk 4.9 cm??? MV Area PHT 3.2 cm??? Mitral E Point Velocity 57.9 cm/s Mitral A Point Velocity 91.0 cm/s Mitral E to A Ratio 0.6 MV Deceleration Time 240.2 ms PV Peak Velocity 74.9 cm/s PV Peak Gradient 2.2 mmHg FINDINGS Left Ventricle Left ventricular ejection fraction is estimated at 55-60 %. Left ventricular cavity size normal. Left ventricular wall thickness normal. No obvious regional wall motion abnormalities. Right Ventricle Normal right ventricular size and function. Unable to estimate the right ventricular systolic pressure. Right Atrium Right atrium not well visualized. Left Atrium Normal left atrial size by visual. Mitral Valve Structurally normal mitral valve. No evidence for mitral valve prolapse. No mitral stenosis. Trace mitral regurgitation. Aortic Valve Trileaflet aortic valve. No aortic valve stenosis or regurgitation. Tricuspid Valve Structurally normal tricuspid valve. No tricuspid stenosis. No tricuspid regurgitation. Pulmonic Valve Pulmonic valve not well visualized. No pulmonic stenosis. No pulmonic regurgitation. Pericardium No pericardial effusion. Prominent epicardial fat. Aorta Aortic annulus normal. Ascending aorta mildly enlarged. CONCLUSIONS Technically difficult study for interpretation Normal biventricular systolic function Poorly visualized intracardiac valves Previewed by: Dr. Humza Patel MD (Electronically Signed) Final Date: 29 June 2024 16:10
[2024-06-30 06:26] LABS: Anisocytosis Moderate; HCT 29.2 % (34.0-46.0); HGB 9.1 gm/dL (11.4-16.0); Hypochromasia Marked; MCH 29.5 pg (25.0-35.0); MCHC 31.2 g/dL (31.0-37.0); MCV 94.4 fL (80.0-100.0); Macrocytosis Slight; Mean Platelet Volume 7.1; Platelet Count 341 k/uL (150-450); RBC 3.09 m/uL (3.80-5.40); RDW 20.1 % (11.5-15.5); WBC 9.7 k/uL (3.8-10.6)
[2024-06-30 06:44] LABS: ALT 33 U/L (4-34); AST 37 U/L (14-36); African American GFR (CKD) 60 (>60 ml/min/1.73 sqM); Albumin 3.5 g/dL (3.5-5.0); Alkaline Phosphatase 90 U/L (38-126); Anion Gap 5 mmol/L; Blood Urea Nitrogen 14 mg/dL (7-17); Calcium 9.1 mg/dL (8.4-10.2); Carbon Dioxide 32 mmol/L (22-30); Chloride 98 mmol/L (98-107); Glucose 109 mg/dL (74-99); Magnesium 1.8 mg/dL (1.6-2.3); Non-African American GFR(CKD) 52 (>60 ml/min/1.73 sqM); Potassium 4.3 mmol/L (3.5-5.1); Sodium 135 mmol/L (137-145); Total Bilirubin 0.7 mg/dL (0.2-1.3); Total Protein 5.9 g/dL (6.3-8.2)
[2024-06-30 07:40] LABS: % Iron Saturation 7.06 (12.00-45.00); Iron 24 UG/DL (50-170); Total Iron Binding Capacity 340 UG/DL (228-460)
--- NOTE | 2024-06-30 08:01 | P.PN ---
Subjective Progress Note Date: 06/30/24 Principal diagnosis: Right upper lobe lung carcinoma, intraoperative bradycardia with complete heart block and associated hypotension. Past medical history significant for hyperte nsion, hyperlipidemia, hypothyroidism, asthma, COPD, depression, anxiety and a recent history of smoking cessation states she has been 169 days free of smoking. POD #3 robotic assisted thoracoscopic right upper lobectomy with mediastinal lymph node dissection. The patient was seen and examined in follow-up today June 30, 2024 at her bedside in the intensive care unit. She is currently sitting up to the bedside chair, is awake, alert, oriented x 3 and is in no acute apparent distress. De nies any complaints of shortness of breath, and is complaining of surgical type pain with coughing, but reports her pain is well-controlled on her current pain medication regimen. Transthoracic 2D echocardiogram results show a left ventricular ejection fraction estimated at 55 to 60%, and trace mitral valve regurgitation. Oxygen saturations are 97% on room air and she is achieving 1000 mL on her incentive spirometry with encouragement. Right pleural chest tube remains in place to waterseal. Intermittent airleak present with coughing. Draining thin serosanguineous drainage with 130 mL output in the last 8 hours and 200 mL output in the last 24 hours. Bedside telemetry is showing normal sinus rhythm with occasional PACs heart rate 63 bpm. She remains hemodynamically stable and is currently on no inotropic or pressor support. She is awaiting a bed on the third floor cardiac stepdown unit. Laboratory and chest x-ray results reviewed. Objective - Vital Signs Vital signs: Vital Signs Temp 98.7 F 06/30/24 00:00 Pulse 64 06/30/24 07:43 Resp 19 06/30/24 00:00 BP 117/78 06/30/24 00:00 Pulse Ox 93 L 06/30/24 00:00 FiO2 Intake & Output 06/29/24 06/30/24 06/30/24 18:59 06:59 18:59 Intake Total 800 Output Total 1450 260 200 Balance -650 -260 -200 Weight 77.2 kg Intake: Intake, IV Titration 100 Amount Magnesium Sulfate-D5w Pmx 100 1 gm In Dextrose/Water 1 100ml.bag @ 100 mls/hr IVPB ONCE ONE Rx#: [id number] Oral 700 Output: Chest Tube Drainage 200 260 Chest Tube Right Pleural/ 200 260 Mediastinal Urine 1250 200 Other: Voiding Method Bedside Commode Bedside Commode # Voids 1 ABP, PAP, CO, CI - Last Documented Arterial Blood Pressure 99/87 - Exam CONSTITUTIONAL: Appears comfortable, cooperative, no acute distress RESPIRATORY: Lungs sounds essentially clear throughout, diminished to her bilateral bases right greater than left. Respirations symmetrical, nonlabored. Currently on room air with oxygen saturation 97%. Able to achieve 1000 mL on her incentive spirometry. Strong cough. CARDIOVASCULAR: S1, S2 present. Regular rate and rhythm, sinus rhythm on telemetry with occasional PACs heart rate in the 60s. Palpable peripheral pulses bilaterally. No edema present. No calf pain or tenderness noted. SCDs present. GASTROINTESTINAL: Abdomen soft, nontender, nondistended. Active bowel sounds present 4 quadrants. Tolerating diet. Passing flatus. GENITOURINARY: Continues to void. INTEGUMENTARY: Skin is warm and dry with no clubbing or cyanosis present. Right chest thoracic incision well approximated and covered with dry intact dressing. NEUROLOGIC: Cranial nerves II through XII intact. No focal deficits. MUSKULOSKELETAL: Able to move all extremities, strength equal bilaterally, gait normal. PSYCHIATRIC: Alert and oriented to person place and time, appropriate affect, intact judgment and insight INVASIVE LINES AND TUBES: Right pleural chest tube present and connected to wall suction, intermittent airleak is present with coughing. Right pleural chest tube with 130 mL serosanguineous drainage overnight, 200 mL in the last 24 hours. - Allied health notes Allied health notes reviewed: nursing - Labs CBC & Chem 7: 06/30/24 05:35 06/30/24 05:35 Labs: Abnormal Lab Results - Last 24 Hours (Table) 06/29/24 06/30/24 06/30/24 Range/Units 03:51 05:35 05:35 RBC 3.09 L (3.80-5.40) m/uL Hgb 9.1 L (11.4-16.0) gm/dL Hct 29.2 L (34.0-46.0) % RDW 20.1 H (11.5-15.5) % Sodium 135 L (137-145) mmol/L Carbon Dioxide 32 H (22-30) mmol/L Creatinine 1.14 H (0.52-1.04) mg/dL Glucose 109 H (74-99) mg/dL Iron 24 L (50-170) UG/DL % Saturation 7.06 L (12.00-45.00) AST 37 H (14-36) U/L Total Protein 5.9 L (6.3-8.2) g/dL - Imaging and Cardiology Chest x-ray: report reviewed, image reviewed Assessment and Plan Assessment: Right upper lobe lung carcinoma, status post 4 chemotherapy treatments and 1 immunotherapy treatments, status post robotic assisted thoracoscopic right upper lobectomy with mediastinal lymph node dissection COPD with a preoperative FEV1 1.72 L 74% of predicted value Intraoperative bradycardia and hypotension, treated medically, patient recuperated with no further problems, currently normal sinus rhythm Elevated troponins, may be related to intraoperative bradycardia and hypotension History of hypertension History of hyperlipidemia Hypothyroidism Recent cessation of smoking Fibromyalgia Depression Anxiety Plan: Keep right pleural chest tube to waterseal. Continue to monitor for airleak resolution. Encourage use of incentive spirometry 10 times every hour while awake. Continue to monitor daily chest x-rays. Out of bed for all meals. Encourage ambulation. Physical and Occupational Therapy following. Patient has been up ambulating in the intensive care unit hallway and tolerating well. Transthoracic 2D echocardiogram results reviewed. Cardiology is following. Continue aspirin 81 mg p.o. daily and statin. Surgical pathology results remain pending, will continue to follow pathology results. Pain management per current as needed orders. Transfer to the third floor cardiac stepdown unit when bed available. Continue to reinforce the importance of risk modification including continued smoking cessation. More recommendations to follow based on patient's clinical course. Time with Patient: Greater than 30
[2024-06-30] MEDS: MAGNESIUM SULFATE-D5W PMX 1 GM in DEXTROSE/WATER 1 100ML.BAG IVPB ONE (10:02)
--- NOTE | 2024-06-30 10:48 | P.PN ---
Subjective Progress Note Date: 06/30/24 The patient is a pleasant 64-year-old female patient with recent diagnosis of lung cancer as well as hypertension and dyslipidemia and thyroid disease and obesity. The patient was admitted to the hospital and she underwent right upper lobectomy with lymph node dissection. The procedure itself was uneventful. Apparently by the end of the procedure there was difficulty ventilating the patient and the patient was hypoxic for short period of time and also she was bradycardic with heart rate in the 20s. She recovered quickly. Subsequently the patient was transferred to recovery and we consulted to see the patient for further evaluation of bradycardia. She has not been bradycardic through her hospital stay in the recovery. She reports no prior cardiovascular symptoms of chest pain or chest discomfort or shortness of breath or dizziness or lightheadedness or any feeling of heart racing or fluttering or presyncope or syncope. She does have multiple risk factor including hypertension and dysl ipidemia. Recent stress test showed no evidence of ischemia. When she was seen and evaluated this morning she is in a pain and she was also slightly hypertensive likely secondary to the pain. Please note that the patient was not on any AV miladis elmer agents. The physical examination is remarkable for patient in mild distress because of the pain and also she has a regular rate and rhythm with a soft systolic murmur at the right upper sternal border with clear breathing sounds bilaterally noted. June 28 2024 The patient was seen and evaluated this morning. Currently she is in the in tensive care unit. No more episode of bradycardia which I think all related to hypoxemia and difficulty ventilation. The echo and cardiac enzymes and TSH and free T4 are still pending. She is not on any AV miladis elmer agents. Examination is remarkable for regular rhythm with a soft systolic murmur and clear breathing sounds bilaterally and no edema was noted. June 29, 2024 The patient was seen and evaluated this morning. She is asymptomatic in terms of chest pain or chest discomfort of course beside the previous chest discomfort from the surgery no shortness of breath or dizziness. She is hemodynamically stable. She is on aspirin and she is on a statin. I would avoid any beta- elmer in the light of recent bradycardia. Beside that she cannot take any IV heparin after we check with the surgical team yesterday with the echo still pending. Examination is remarkable for regular rhythm with a soft systolic murmur and clear breathing sounds bilaterally and no edema was noted in the lower extremities June 30, 2024 The patient was seen and evaluated this morning. She is asymptomatic. The chest tube is still there. The plan is to take the chest tube by tomorrow. She reports no pain in the chest and no shortness of breath. Hemodynamically she remains stable. The echo showed normal LV systolic function but the study was technically very difficult. The physical examination is remarkable for regular rhythm with diminished breathing sounds bilaterally and no edema was noted in the lower extremities. Assessment Evidence of myocardial injury could be secondary to type II myocardial infarction and secondary to hypoxemia and profound bradycardia during the s urgery Status post right upper lobectomy for lung cancer Difficulty ventilation throughout the procedure associated with hypoxemia and bradycardia which was very transient Hypertension Dyslipidemia Thyroid disease History of smoking Plan Continue the current medical regimen including aspirin and statin Start the patient on Plavix if is okay from the surgical standpoint of view Consider ruling out severe CAD either invasively or noninvasively once the chest tube is out The echo showed preserved LV systolic function Objective - Vital Signs Vital signs: Vital Signs Temp 98.4 F 06/30/24 08:00 Pulse 72 06/30/24 08:06 Resp 16 06/30/24 08:00 BP 116/74 06/30/24 08:00 Pulse Ox 93 L 06/30/24 08:00 FiO2 Intake & Output 06/29/24 06/30/24 06/30/24 18:59 06:59 18:59 Intake Total 800 Output Total 1450 670 200 Balance -650 -670 -200 Weight 77.2 kg Intake: Intake, IV Titration 100 Amount Magnesium Sulfate-D5w Pmx 100 1 gm In Dextrose/Water 1 100ml.bag @ 100 mls/hr IVPB ONCE ONE Rx#: [id number] Oral 700 Output: Chest Tube Drainage 200 170 Chest Tube Right Pleural/ 200 170 Mediastinal Urine 1250 500 200 Other: Voiding Method Bedside Commode Bedside Commode # Voids 1 ABP, PAP, CO, CI - Last Documented Arterial Blood Pressure 99/87 - Labs CBC & Chem 7: 06/30/24 05:35 06/30/24 05:35 Labs: Abnormal Lab Results - Last 24 Hours (Table) 06/29/24 06/30/24 06/30/24 Range/Units 03:51 05:35 05:35 RBC 3.09 L (3.80-5.40) m/uL Hgb 9.1 L (11.4-16.0) gm/dL Hct 29.2 L (34.0-46.0) % RDW 20.1 H (11.5-15.5) % Sodium 135 L (137-145) mmol/L Carbon Dioxide 32 H (22-30) mmol/L Creatinine 1.14 H (0.52-1.04) mg/dL Glucose 109 H (74-99) mg/dL Iron 24 L (50-170) UG/DL % Saturation 7.06 L (12.00-45.00) AST 37 H (14-36) U/L Total Protein 5.9 L (6.3-8.2) g/dL
--- NOTE | 2024-06-30 10:57 | XR ---
EXAMINATION TYPE: XR chest 1V portable DATE OF EXAM: 06/30/2024 Comparison: 06/29/2024 Clinical History: 64-year-old female Status post right upper lobectomy Findings: Volume loss right hemithorax with small right apical pneumothorax estimated at 2.1 cm. Asymmetric rig ht hilar prominence is unchanged. Right-sided apically directed chest tube in place. ACDF hardware. M ild interstitial density persists. Impression: 1. Right-sided chest tube in place. A small right apical pneumothorax estimated at 2.1 cm is relative ly similar. 2. Asymmetric right hilar prominence may in part be postsurgical. 3. Interstitial density, possible mild pulmonary vascular congestion. [facility], , 06/30/2024 10:55 AM
--- NOTE | 2024-06-30 11:24 | P.PN ---
Subjective Progress Note Date: 06/30/24 Principal diagnosis: Status post robotic assisted right upper lobectomy and mediastinal node dissection postoperative day #3 This is a 64-year-old female with right upper lobe adenocarcinoma patient had [id number] smoking history, hypertension, dyslipidemia, hypothyroidism, f ibromyalgia, on 02/09/2023, patient had a 1 cm nodule in the right upper lobe, apparently the patient did not follow-up mostly because of insurance issues. On , patient had a PET scan revealed 3 cm tumor with possible 4R lymph node. Patient underwent biopsy on 12/18/2023, and she was found to have poorly differentiated adenocarcinoma. Patient had a repeat PET CT which revealed the nodule plus new inflammatory changes in both upper and middle lobes. Patient was initially referred to Dr. Horta, however since he saw her last on 01/29/2024, and he left town, patient was referred to Dr. Yusuf. Today the patient underwent robotic assisted thoracoscopic right upper lobectomy with mediastinal node dissection. Postoperatively we were asked to see the patient on consultation. Patient had a follow-up chest x-ray which shows no evidence of pneumothorax, right-sided chest tube is in the proper position, patient does have air leak. Looking back on bronchoscopy done by Dr. Yusuf on 02/08/2024, patient had biopsies which showed poorly differentiated non-small cell carcinoma in the right upper lobe, she had negative station 7 and she also had negative right paratracheal 4R nodes. Patient was seen and examined today on 06/28/2024, patient is now postoperative day #1, patient had robotic assisted thoracoscopic right upper lobectomy and mediastinal lymph node dissection seems to be doing well, she had lots of pain which is being handled with pain medications, apparently during the procedure patient had hypoxemia and bradycardia and that being addressed by cardiology/her bradycardia specifically, troponin is elevated, echocardiogram is pending, patient is being followed by Dr. Craven. Continues to have a chest tube in place, continues to have a minimal air leak, chest x-ray is reassuring, no evidence of pneumothorax. WBC count is 8.8 hemoglobin 7.9 electrolytes are normal renal profile is normal troponin today was 4.25, follow-up troponin was 3.26 Patient was evaluated today on 06/29/2024, remains in the ICU, sitting at the bedside chair, does not seem to be in any distress, patient is doing well with incentive spirometry achieving over 1500 cc, small right-sided pneumothorax is noted, continues to have intermittent airleak. Chest tube is in place to waterseal. Had 300 mL output from the chest tube over the last 24 hours. Patient is ambulating with assistance. Overall the patient is doing well, pain is under control. Dynamically stable. WBC count is 9.5 hemoglobin 8.2 electrolytes are normal BUN is 15 creatinine 1.14 Patient was seen today on 06/30/2024, patient is on room air, doing quite well, chest x-ray is unremarkable, minimal intermittent air leak is noted, continues to have chest tube in place, patient is now postoperative day #3. His O2 sats i s 97% on room air, achieving over 1000 cc on her incentive spirometry. Patient is still considered overflow in the ICU. And she is waiting to be transferred to a bed on the stepdown unit. Chest x-ray was reviewed labs were all reviewed they seem to be relatively unremarkable. Objective - Vital Signs Vital signs: Vital Signs Temp 98.4 F 06/30/24 08:00 Pulse 80 06/30/24 11:17 Resp 16 06/30/24 08:00 BP 116/74 06/30/24 08:00 Pulse Ox 93 L 06/30/24 08:00 FiO2 Intake & Output 06/29/24 06/30/24 06/30/24 18:59 06:59 18:59 Intake Total 800 Output Total 1450 670 200 Balance -650 -670 -200 Weight 77.2 kg Intake: Intake, IV Titration 100 Amount Magnesium Sulfate-D5w Pmx 100 1 gm In Dextrose/Water 1 100ml.bag @ 100 mls/hr IVPB ONCE ONE Rx#: [id number] Oral 700 Output: Chest Tube Drainage 200 170 Chest Tube Right Pleural/ 200 170 Mediastinal Urine 1250 500 200 Other: Voiding Method Bedside Commode Bedside Commode # Voids 1 ABP, PAP, CO, CI - Last Documented Arterial Blood Pressure 99/87 - Exam General: Revealed a 64-year-old female in no distress, on room air, O2 session 95% Skin: Skin is warm and dry and no rashes or lesions are noted. Eye: Pupils are equal, round and reactive to light, extra-ocular movements are intact; there is normal conjunctiva bilaterally. Ears, nose, mouth and throat: There are moist mucous membranes and no oral le sions. Neck: The neck is supple, there is no tenderness or JVD. Cardiovascular: There is a regular rate and rhythm. No murmur, rub or gallop is appreciated. Respiratory: Diminished breath sound bilaterally, right-sided chest tube is noted, minimal intermittent airleak noted Gastrointestinal: Soft, non-distended, non-tender abdomen without masses or organomegaly noted. There is no rebound or guarding present. Bowel sounds are unremarkable. Back: There is no tenderness to palpation in the midline. There is no obvious deformity. Musculoskeletal: Normal ROM, no tenderness, There is no pedal edema. There is no calf tenderness or swelling. No cords were appreciated. Neurological: CN II-XII intact, Cranial nerves III through XII are intact. There are no obvious motor or sensory deficits. Coordination appears grossly intact. Speech is normal. Psychiatric: Normal mood affect and no mental status examination. - Labs CBC & Chem 7: 06/30/24 05:35 06/30/24 05:35 Labs: Abnormal Lab Results - Last 24 Hours (Table) 06/29/24 06/30/24 06/30/24 Range/Units 03:51 05:35 05:35 RBC 3.09 L (3.80-5.40) m/uL Hgb 9.1 L (11.4-16.0) gm/dL Hct 29.2 L (34.0-46.0) % RDW 20.1 H (11.5-15.5) % Sodium 135 L (137-145) mmol/L Carbon Dioxide 32 H (22-30) mmol/L Creatinine 1.14 H (0.52-1.04) mg/dL Glucose 109 H (74-99) mg/dL Iron 24 L (50-170) UG/DL % Saturation 7.06 L (12.00-45.00) AST 37 H (14-36) U/L Total Protein 5.9 L (6.3-8.2) g/dL Assessment and Plan Assessment: Impression: Status post robotic assisted right upper lobectomy and mediastinal node dissection postoperative day #3 Postoperative small right-sided apical pneumothorax, expected History of right upper lobe adenocarcinoma, biopsy-proven from previous robotic Ion bronchoscopy and EBUS Dyslipidemia Benign essential hypertension Postoperative bradycardia being addressed by cardiology History of hypothyroidism History of fibromyalgia Recommendation: Continue incentive spirometry Continue chest tube, as long as there is an air leak., Not quite ready to be removed yet. Chest x-ray continues to show a small tiny apical pneumothorax on the right side. And the chest tube has a minimal intermittent air leak Continue bronchodilators Continue incentive spirometry Ambulate Will continue to follow Time with Patient: Less than 30
[2024-07-01 06:00] LABS: Anisocytosis Moderate; HCT 27.5 % (34.0-46.0); HGB 9.1 gm/dL (11.4-16.0); Hypochromasia Slight; MCH 30.8 pg (25.0-35.0); MCHC 32.9 g/dL (31.0-37.0); MCV 93.7 fL (80.0-100.0); Macrocytosis Slight; Mean Platelet Volume 7.3; Platelet Count 333 k/uL (150-450); RBC 2.94 m/uL (3.80-5.40); RDW 20.1 % (11.5-15.5); WBC 10.7 k/uL (3.8-10.6)
[2024-07-01 06:24] LABS: African American GFR (CKD) 62 (>60 ml/min/1.73 sqM); Anion Gap 7 mmol/L; Blood Urea Nitrogen 16 mg/dL (7-17); Calcium 9.2 mg/dL (8.4-10.2); Carbon Dioxide 29 mmol/L (22-30); Chloride 99 mmol/L (98-107); Glucose 121 mg/dL (74-99); Magnesium 1.9 mg/dL (1.6-2.3); Non-African American GFR(CKD) 54 (>60 ml/min/1.73 sqM); Potassium 3.9 mmol/L (3.5-5.1); Sodium 135 mmol/L (137-145)
[2024-07-01] MEDS: POTASSIUM CHLORIDE ER 20 MEQ TAB.ER PO SCH (06:55)
[2024-07-01] MEDS: MAGNESIUM SULFATE-D5W PMX 1 GM in DEXTROSE/WATER 1 100ML.BAG IVPB ONE (06:55)
--- NOTE | 2024-07-01 07:50 | P.PN ---
Subjective Progress Note Date: 07/01/24 Principal diagnosis: Right upper lobe lung carcinoma, intraoperative bradycardia with complete heart block and associated hypotension, type II myocardial infarction likely secondary to bradycardia and hypotension. Previous medical history of hypertension, hyperlipidemia, hypothyroidism, asthma, COPD, depression, anxiety, fibromyalgia, and previous tobacco dependence with cessation 6 months ago POD #4 robotic assisted thoracoscopic right upper lobectomy with mediastinal lym ph node dissection Patient was seen and examined sitting up in recliner in the intensive care unit in no acute distress. She remains in sinus rhythm, hemodynamically stable. Currently on room air with oxygen saturation in the high 90s, able to achieve 1500 mL on incentive spirometry. She states pain from surgery is mostly controlled on current medication regimen. She has been ambulatory, reports ambulation around the ICU hallway 5 times yesterday without difficulty. Right- sided pleural chest tube remains to waterseal, no air leak present this morning. Labs, chest x-ray reviewed. Patient is anxious to go home. No other new concerns. Objective - Vital Signs Vital signs: Vital Signs Temp 98.1 F 07/01/24 03:24 Pulse 69 07/01/24 03:24 Resp 16 07/01/24 03:24 BP 116/70 07/01/24 03:24 Pulse Ox 99 07/01/24 03:24 FiO2 Intake & Output 06/30/24 07/01/24 07/01/24 18:59 06:59 18:59 Output Total 1125 745 Balance -1125 -745 Weight 72.9 kg Output: Chest Tube Drainage 0 70 Chest Tube Right Pleural/ 0 70 Mediastinal Urine 1125 675 Other: Voiding Method Toilet Toilet # Voids 1 # Bowel Movements 1 ABP, PAP, CO, CI - Last Documented Arterial Blood Pressure 99/87 - Exam CONSTITUTIONAL: Appears comfortable, cooperative, no acute distress RESPIRATORY: Lungs sounds diminished bilaterally. Respirations even, nonlabored. Currently on room air with oxygen saturation 99%. Able to achieve 1500 mL on incentive spirometry. Strong cough. CARDIOVASCULAR: S1, S2 present. Regular rate and rhythm, sinus rhythm on telemetry. Palpable peripheral pulses bilaterally. No edema present. No calf pain or tenderness noted. SCDs present. GASTROINTESTINAL: Abdomen soft, nontender, nondistended. Active bowel sounds present 4 quadrants. Tolerating diet. Positive bowel movement 06/30 GENITOURINARY: Continues to void INTEGUMENTARY: Skin is warm and dry. Thoracic incision well approximated and covered with dry intact dressing. NEUROLOGIC: Cranial nerves II through XII intact MUSKULOSKELETAL: Able to move all extremities, strength equal bilaterally, gait normal PSYCHIATRIC: Alert and oriented to person place and time, appropriate affect, intact judgment and insight INVASIVE LINES AND TUBES: Right pleural chest tubes present to waterseal, no air leaks present, 70 mL serosanguineous drainage overnight, 300 mL in the last 24 hours - Allied health notes Allied health notes reviewed: nursing - Labs CBC & Chem 7: 07/01/24 05:33 07/01/24 05:33 Labs: Abnormal Lab Results - Last 24 Hours (Table) 06/29/24 07/01/24 07/01/24 Range/Units 03:51 05:33 05:33 WBC 10.7 H (3.8-10.6) k/uL RBC 2.94 L (3.80-5.40) m/uL Hgb 9.1 L (11.4-16.0) gm/dL Hct 27.5 L (34.0-46.0) % RDW 20.1 H (11.5-15.5) % Sodium 135 L (137-145) mmol/L Creatinine 1.10 H (0.52-1.04) mg/dL Glucose 121 H (74-99) mg/dL Iron 24 L (50-170) UG/DL % Saturation 7.06 L (12.00-45.00) - Imaging and Cardiology Chest x-ray: image reviewed Assessment and Plan Assessment: Right upper lobe lung carcinoma, proven poorly differentiated non-small cell carcinoma on bronchoscopy, status post 4 chemotherapy treatments and 1 immunotherapy treatment, status post robotic assisted thoracoscopic right upper lobectomy with mediastinal lymph node dissection Intraoperative bradycardia with complete heart block and associated hypotension Type II myocardial infarction likely secondary to bradycardia and hypotension History of hypertension Hyperlipidemia Hypothyroidism Asthma COPD Depression/anxiety Fibromyalgia Previous tobacco dependence with cessation 6 months ago, previous [id number] smoking history Plan: Will remove pleural chest tube, repeat chest x-ray at noon Encourage use of incentive spirometry 10 times every hour while awake Increase activity, ambulate as tolerated Surgical pathology results remain pending Pain management per current medication regimen Continue to reinforce the importance of risk modification including continued smoking cessation If repeat chest x-ray remains stable will discharge patient to home
[2024-07-01 09:47] VITALS: TEMP 98
--- NOTE | 2024-07-01 10:22 | XR ---
EXAMINATION TYPE: XR chest 2V DATE OF EXAM: 07/01/2024 COMPARISON: 06/30/2024 INDICATION: Status post right upper lobectomy TECHNIQUE: Frontal and lateral views of the chest are obtained. FINDINGS: The heart size is normal. The pulmonary vasculature is normal. There is some fullness in the right perihilar region. Right side chest tube is present with the tip d irected towards the apex. There is a small right apical pneumothorax, diminished in size over the int erval.. IMPRESSION: 1. Small residual right apical pneumothorax. 2. Stable fullness of the right hilum. 3. Right sided chest tube remains in position [facility], , 07/01/2024 10:20 AM
--- NOTE | 2024-07-01 11:15 | P.PN ---
Subjective Progress Note Date: 07/01/24 Principal diagnosis: Lung cancer. Status post robotic assisted right upper lobectomy and mediastinal node dissection postoperative day #3 This is a 64-year-old female with right upper lobe adenocarcinoma patient had 29-[id number]-vfpy smoking history, hypertension, dyslipidemia, hypothyroidism, fibromyalgia, on 02/09/2023, patient had a 1 cm nodule in the right upper lobe, apparently the patient did not follow-up mostly because of insurance issues. On , patient had a PET scan revealed 3 cm tumor with possible 4R lymph node. Patient underwent biopsy on 12/18/2023, and she was found to have poorly differentiated adenocarcinoma. Patient had a repeat PET CT which revealed the nodule plus new inflammatory changes in both upper and middle lobes. Patient was initially referred to Dr. Horta, however since he saw her last on 01/29/2024, and he left town, patient was referred to Dr. Yusuf. Today the patient underwent robotic assisted thoracoscopic right upper lobectomy with mediastinal node dissection. Postoperatively we were asked to see the patient on consultation. Patient had a follow-up chest x-ray which shows no evidence of pneumothorax, right-sided chest tube is in the proper position, patient does have air leak. Looking back on bronchoscopy done by Dr. Yusuf on 02/08/2024, patient had biopsies which showed poorly differentiated non-small cell carcinoma in the right upper lobe, she had negative station 7 and she also had negative right paratracheal 4R nodes. Patient was seen and examined today on 06/28/2024, patient is now postoperative day #1, patient had robotic assisted thoracoscopic right upper lobectomy and mediastinal lymph node dissection seems to be doing well, she had lots of pain which is being handled with pain medications, apparently during the procedure patient had hypoxemia and bradycardia and that being addressed by cardiology/her bradycardia specifically, troponin is elevated, echocardiogram is pending, patient is being followed by Dr. Craven. Continues to have a chest tube in place, continues to have a minimal air leak, chest x-ray is reassuring, no evidence of pneumothorax. WBC count is 8.8 hemoglobin 7.9 electrolytes are normal renal profile is normal troponin today was 4.25, follow-up troponin was 3.26 Patient was evaluated today on 06/29/2024, remains in the ICU, sitting at the bedside chair, does not seem to be in any distress, patient is doing well with incentive spirometry achieving over 1500 cc, small right-sided pneumothorax is noted, continues to have intermittent airleak. Chest tube is in place to chapin pacheco. Had 300 mL output from the chest tube over the last 24 hours. Patient is ambulating with assistance. Overall the patient is doing well, pain is under control. Dynamically stable. WBC count is 9.5 hemoglobin 8.2 electrolytes are normal BUN is 15 creatinine 1.14 Patient was seen today on 06/30/2024, patient is on room air, doing quite well, chest x-ray is unremarkable, minimal intermittent air leak is noted, continues to have chest tube in place, patient is now postoperative day #3. His O2 sats is 97% on room air, achieving over 1000 cc on her incentive spirometry. Patient is still considered overflow in the ICU. And she is waiting to be transferred to a bed on the stepdown unit. Chest x-ray was reviewed labs were all reviewed they seem to be relatively unremarkable. Progress note dated July 01, 2024. 64-year-old female with previous right upper lobectomy for lung cancer. She was admitted on June 27. She went to the operating room on June 27. The patient sustained a type II myocardial infarction, after surgery, thought to be related to hypoxemia. Currently, she seen in room 258. She is on room air. She is not receiving any IV fluids. She has no specific complaints today. Patient is hoping to be able to be discharged soon, after the right sided chest tube is removed. Current labs include a white count 10.7, hemoglobin 9.1, hematocrit 27.5, with a normal platelet count. Sodium 135, potassium 3.9, chlorides 99, CO2 29, BUN 16, creatinine 1.10. Glucose 121. Chest x-ray shows a small residual right apical pneumothorax, fullness of the right hilum, and the right sided chest tube. Objective - Vital Signs Vital signs: Vital Signs Temp 98 F 07/01/24 09:46 Pulse 76 07/01/24 09:46 Resp 16 07/01/24 09:46 BP 108/86 07/01/24 09:46 Pulse Ox 95 07/01/24 09:46 FiO2 Intake & Output 06/30/24 07/01/24 07/01/24 18:59 06:59 18:59 Intake Total 300 Output Total 1125 745 400 Balance -1125 -745 -100 Weight 72.9 kg Intake: Oral 300 Output: Chest Tube Drainage 0 70 0 Chest Tube Right Pleural/ 0 70 0 Mediastinal Urine 1125 675 400 Other: Voiding Method Toilet Toilet Toilet # Voids 1 1 # Bowel Movements 1 1 ABP, PAP, CO, CI - Last Documented Arterial Blood Pressure 99/87 - Exam No acute distress, oriented 3. Currently on room air. No respiratory distress. HEENT examination is grossly unremarkable. Mucous membranes are moist. No oral lesions. Neck supple. Full range of motion. No adenopathy thyromegaly or neck vein distention. Cardiovascular examination reveals regular rhythm rate. S1-S2 normal. No S3 or S4. No discernible murmur noted. Lungs reveal minimal scattered rhonchi. No wheezes or crackles. Breath sounds equal bilaterally. Right chest tube noted. Abdomen soft bowel sounds are heard. No masses or tenderness. Extremities are intact. No cyanosis clubbing or edema. Skin is without rash or lesion. Neurologic examination is brief but nonfocal. - Labs CBC & Chem 7: 07/01/24 05:33 07/01/24 05:33 Labs: Abnormal Lab Results - Last 24 Hours (Table) 07/01/24 07/01/24 Range/Units 05:33 05:33 WBC 10.7 H (3.8-10.6) k/uL RBC 2.94 L (3.80-5.40) m/uL Hgb 9.1 L (11.4-16.0) gm/dL Hct 27.5 L (34.0-46.0) % RDW 20.1 H (11.5-15.5) % Sodium 135 L (137-145) mmol/L Creatinine 1.10 H (0.52-1.04) mg/dL Glucose 121 H (74-99) mg/dL Assessment and Plan Assessment: Status post robotically assisted right upper lobectomy, and mediastinal lymph node dissection, postoperative day #4. Postoperative small right-sided apical pneumothorax. History of right upper lobe adenocarcinoma, biopsy-proven, from a previous robotic bronchoscopy and EBUS. Hyperlipidemia. Benign essential hypertension. Myocardial ischemia, secondary to postoperative hypoxemia. History of hypothyroidism. History of fibromyalgia. Plan: Plan dated July 01, 2024. The patient is seen today in room 258. She was admitted on June 27, and had a right upper lobectomy, on June 27. Postsurgically, she developed severe bradycardia, and was thought to have a myocardial infarction, secondary to a type II injury. The patient is doing well otherwise. Her right chest tube is still in. It is likely to be removed today, the patient is hoping to be discharged home. The patient should follow-up in our office with Dr. Dumont Additional recommendations and suggestions are forthcoming. Labs, x-rays, and medications are reviewed. Time with Patient: Less than 30
[2024-07-01] MEDS: SODIUM FERRIC GLUCONAT-SUCROSE 125 MG in SODIUM CHLORIDE 0.9% 100 ML IVPB SCH (12:08)
--- NOTE | 2024-07-01 12:18 | XR ---
EXAMINATION TYPE: XR chest 2V DATE OF EXAM: 07/01/2024 COMPARISON: Earlier same day INDICATION: Pneumothorax post lobectomy TECHNIQUE: Frontal and lateral views of the chest are obtained. FINDINGS: The heart size is normal. The pulmonary vasculature is normal. There is fullness in the right hilum. The lungs are clear. Small right apical pneumothorax is present, stable from the comparison study. T he chest tube is been removed. There is some blunting of the right costophrenic angle. Minimal effusi on may be present at the costophrenic angles. IMPRESSION: 1. Minimal right apical pneumothorax stable post chest tube removal. 2. Fullness of the right hilum. 3. Minimal bilateral costophrenic angle fluid collections [facility], , 07/01/2024 12:15 PM
--- NOTE | 2024-07-01 12:37 | P.DS ---
Providers Date of admission: 06/27/24 05:34 Expected date of discharge: 07/01/24 Attending physician: Ruben Yusuf Consults: 06/27/24 10:53 Consult Physician Routine Consulting Provider: Carlyle Tony Consult Reason/Comments: pulmonary management, status post right upper lobectomy Do you want consulting provider notified?: Yes 06/27/24 10:58 Consult Physician Routine Consulting Provider: Rohini Hogan Consult Reason/Comments: status post right upper lobectomy Do you want consulting provider notified?: Yes 06/27/24 10:59 Consult Physician Routine Consulting Provider: Humza Patel Consult Reason/Comments: bradycardia during surgical procedure Do you want consulting provider notified?: Yes Primary care physician: Stated None Hospital Course: FINAL DIAGNOSIS: Right upper lobe lung carcinoma, proven poorly differentiated non-small cell carcinoma on bronchoscopy, status post 4 chemotherapy treatments and 1 immunotherapy treatment Intraoperative bradycardia with complete heart block and associated hypotension Type II myocardial infarction likely secondary to bradycardia and hypotension History of hypertension Hyperlipidemia Hypothyroidism Asthma COPD Depression/anxiety Fibromyalgia Previous tobacco dependence with cessation 6 months ago, previous 85-pswz-jank smoking history PRINCIPAL PROCEDURE: Robotic assisted thoracoscopic right upper lobectomy with mediastinal lymph node dissection HISTORY OF PRESENT ILLNESS: This is a 64-year-old female with [id number] history of smoking who had a chest CT done in January 2023 which revealed a 1 cm nodule in the right upper lobe. Unfortunately she had issues with her insurance and was lost to follow-up. She did undergo PET/CT in September 2023 which revealed a 3 cm tumor with possible 4R lymph node. She underwent biopsy of the tumor in December 2023 in [place] revealing poorly differentiated adenocarcinoma. Repeat PET/CT revealed the nodule plus new inflammatory changes in both the upper and middle lobes of the right lung. She had cut down her smoking habit. She was referred to Dr. Horta from cardiothoracic surgery for treatment recommendations. At that time discussion took place regarding progression of carcinoma and surgery. Prior to surgical decision patient needed to have an EBUS and full pulmonary function test completed as well as cardiac clearance and brain MRI. She did undergo neoadjuvant therapy, quit smoking, and was referred back to Dr. Yusuf from cardiothoracic surgery as Dr. Horta had left the state. Dr. Yusuf recommended right upper lobectomy. The usual perioperative course was discussed in detail with the patient and her family, all risks and benefits were explained, all questions were answered, and consent was obtained to proceed with surgery. The patient was scheduled for elective surgery at the earliest possible date. HOSPITAL COURSE: The patient was brought to the hospital on 06/27/24, taken to the preoperative area, prepared in the usual fashion, and subsequently taken to the operating room where Dr. Yusuf performed a robotic assisted thoracoscopic right upper lobectomy with mediastinal lymph node dissection. At the start of the surgery the patient did have an episode of bradycardia and complete heart block along with hypotension, she did recover and surgery continued as planned without further incident. Upon completion of surgery the patient was transferred to the cardiovascular intensive care unit where she was recovered and monitored hemodynamically. She was extubated and taken to the intensive care unit for further monitoring with consultation placed to cardiology who completed an echocardiogram demonstrating normal ventricular function and no significant valvular pathology. Transfer orders were placed for 3 S. cardiac stepdown unit when appropriate, however there was no bed availability and the patient remained on ICU as a stepdown patient until discharge. Her chest tube was discontinued on postoperative day #4, follow-up chest x-ray was stable. Her oxygen was titrated down, she continued to work with physical and occupational therapy, she was tolerating oral diet, her pain was controlled, and she was ready to be discharged to home on postoperative day #4. She received written and verbal instruction regarding her medications, activity restrictions, signs and symptoms requiring physician notification, and follow-up appointments. Patient Condition at Discharge: Stable Plan - Discharge Summary Discharge Rx Participant: Yes New Discharge Prescriptions: New Aspirin 81 mg PO DAILY tab Docusate [Colace] 100 mg PO DAILY PRN cap PRN Reason: Constipation Acetaminophen Tab [Tylenol] 1,000 mg PO Q4HR PRN tab PRN Reason: Mild To Moderate Pain (1 - 6) Continue Furosemide [Lasix] 40 mg PO DAILY HYDROcodone/APAP 7.5-325MG [Amery 7.5-325] 1 tab PO TID PRN PRN Reason: Pain Pramipexole [Mirapex] 0.125 mg PO HS Omeprazole 40 mg PO DAILY Rosuvastatin [Crestor] 40 mg PO DAILY hydrOXYzine HCL 25 mg PO TID PRN PRN Reason: Anxiety Levothyroxine Sodium 100 mcg PO DAILY Ondansetron [Zofran] 1 - 2 tab PO Q8HR PRN PRN Reason: Nausea Discharge Medication List Furosemide [Lasix] 40 mg PO DAILY 12/19/15 [History] HYDROcodone/APAP 7.5-325MG [Amery 7.5-325] 1 tab PO TID PRN 12/19/15 [History] Levothyroxine Sodium 100 mcg PO DAILY 02/06/24 [History] Omeprazole 40 mg PO DAILY 02/06/24 [History] Pramipexole [Mirapex] 0.125 mg PO HS 02/06/24 [History] Rosuvastatin [Crestor] 40 mg PO DAILY 02/06/24 [History] hydrOXYzine HCL 25 mg PO TID PRN 02/06/24 [History] Ondansetron [Zofran] 1 - 2 tab PO Q8HR PRN 06/26/24 [History] Acetaminophen Tab [Tylenol] 1,000 mg PO Q4HR PRN tab 07/01/24 [Rx] Aspirin 81 mg PO DAILY tab 07/01/24 [Rx] Docusate [Colace] 100 mg PO DAILY PRN cap 07/01/24 [Rx] Follow up Appointment(s)/Referral(s): Ruben Yusuf MD [STAFF PHYSICIAN] - 07/18/24 2:00 pm Krystal Roberson MD [REFERRING] - As Needed Gee Dumont MD [STAFF PHYSICIAN] - 07/19/24 9:00 am Rohini Hogan MD [STAFF PHYSICIAN] - As Needed Activity/Diet/Wound Care/Special Instructions: DISCHARGE INSTRUCTIONS: 1. No driving for 2 weeks, or until physician gives their ok. 2. No lifting, pushing, or pulling more than 10 pounds for 2 weeks. The physician will advise of any restriction changes. 3. Continue pain control per as needed orders. Alternate acetaminophen (Tylen ol) and ibuprofen (Motrin/Advil) for pain. 4. Continue with incentive spirometry and splinting until otherwise directed by the physician. 5. Leave chest tube dressing for 48 hours. After that, remove all dressings and shower daily. 6. Routine incision care. No powders, lotions, ointments on incisions. 7. Please call surgeon/UTILIZATION MANAGEMENT MANAGER for temp greater than 101 F or purulent drainage from incisions. 8. Smoking cessation counseling and program information provided. Quitting smoking is the most important step you can take to improve your health. For additional information and assistance to quit smoking, please call the [place] tobacco quit line (7-079-MQZA-NOW/ ) or online: [email or web address] it-[email or web address] Discharge Disposition: HOME SELF-CARE
[2024-07-01 13:08] VITALS: BP 138/84; PULSE 80; RESP 20
--- NOTE | 2024-07-02 07:30 | P.PN ---
Subjective Progress Note Date: 07/01/24 No acute events. Chest tube removed, reporting pain has significantly improved. Denies HELEN/SOB. Plan is for discharge today Objective - Vital Signs Vital signs: Vital Signs Temp 98 F 07/01/24 09:46 Pulse 76 07/01/24 09:46 Resp 16 07/01/24 09:46 BP 108/86 07/01/24 09:46 Pulse Ox 95 07/01/24 09:46 FiO2 Intake & Output 06/30/24 07/01/24 07/01/24 18:59 06:59 18:59 Intake Total 300 Output Total 1125 745 400 Balance -1125 -745 -100 Weight 72.9 kg Intake: Oral 300 Output: Chest Tube Drainage 0 70 0 Chest Tube Right Pleural/ 0 70 0 Mediastinal Urine 1125 675 400 Other: Voiding Method Toilet Toilet Toilet # Voids 1 1 # Bowel Movements 1 1 ABP, PAP, CO, CI - Last Documented Arterial Blood Pressure 99/87 - Constitutional General appearance: Present: average body habitus, no acute distress - EENT Eyes: Present: anicteric sclerae, EOMI ENT: Present: hearing grossly normal - Respiratory Details: breathing is even and unlabored - Cardiovascular Details: skin warm and dry - Integumentary Integumentary: Absent: cyanotic - Musculoskeletal Musculoskeletal: Present: strength equal bilaterally - Psychiatric Psychiatric: Present: A&O x's 3 - Labs CBC & Chem 7: 07/01/24 05:33 07/01/24 05:33 Labs: Abnormal Lab Results - Last 24 Hours (Table) 07/01/24 07/01/24 Range/Units 05:33 05:33 WBC 10.7 H (3.8-10.6) k/uL RBC 2.94 L (3.80-5.40) m/uL Hgb 9.1 L (11.4-16.0) gm/dL Hct 27.5 L (34.0-46.0) % RDW 20.1 H (11.5-15.5) % Sodium 135 L (137-145) mmol/L Creatinine 1.10 H (0.52-1.04) mg/dL Glucose 121 H (74-99) mg/dL Assessment and Plan (1) Adenocarcinoma, lung Status: Acute Priority: High Code(s): C34.90 - MALIGNANT NEOPLASM OF UNSP PART OF UNSP BRONCHUS OR LUNG SNOMED Code(s): 784674818 (2) Anemia Status: Acute Priority: Medium Code(s): D64.9 - ANEMIA, UNSPECIFIED SNOMED Code(s): 297963737 Plan: Lung adenocarcinoma: -Oncology history and plan as dictated in the HPI -She completed 4 cycle of neoadjuvant carbo/alimta and keytruda on 05/20/24. Repeat CT chest on 05/02/2024 showed significant response. She was revaluated by CTS, and was scheduled for right upper lobectomy on 06/27/[address] Yusuf. Plan is to continue on keytruda once recovered from surgery -Patient underwent right upper lobectomy with lymph node dissection on 06/27/24. Pathology pending -Plan is continue on Keytruda once healed from surgery, which is typically 4 weeks post-op. Clinic f/u scheduled on 07/26 Above plan was discussed with patient. All questions and concerns addressed Anemia: -CBC showing, WBC 8.8, Hgb 7.9, MCV 93.8, MCH 29.1, plt 287. Hgb in clinic has typically been in 9 range -Anemia labs consistent with iron def anemia. Parenteral iron ordered -Today hgb stable at 9.1 -Likely multifactorial due to blood loss and inflammation s/p surgery -Continue to monitor CBC. Transfuse for hgb less than 7 or if symptomatic
== END 2024-07-01 13:26 | disposition home or self-care (01) | DRG 163 ==
LOC: 2ORMAIN 05:34 → 2SICU 16:28
PROVIDERS: ADMIT Thoracic Surgery (Cardiothoracic Vascular Surgery); ATTEND Thoracic Surgery (Cardiothoracic Vascular Surgery)
PROC: 07B74ZX Excision of Thorax Lymphatic, Percutaneous Endoscopic Approach, Diagnostic (ICD-10-PCS; 2024-06-27)
PROC: 8E0W4CZ Robotic Assisted Procedure of Trunk Region, Percutaneous Endoscopic Approach (ICD-10-PCS; 2024-06-27)
PROC: 0BTC4ZZ Resection of Right Upper Lung Lobe, Percutaneous Endoscopic Approach (ICD-10-PCS; principal; 2024-06-27 07:30)
DX: C34.11 Malignant neoplasm of upper lobe, right bronchus or lung (principal); I21.A1 Myocardial infarction type 2; I97.88 Other intraoperative complications of the circulatory system, not elsewhere classified; I44.2 Atrioventricular block, complete; D62 Acute posthemorrhagic anemia; J93.83 Other pneumothorax; J43.9 Emphysema, unspecified; E27.8 Other specified disorders of adrenal gland; I95.81 Postprocedural hypotension; E78.5 Hyperlipidemia, unspecified; E03.9 Hypothyroidism, unspecified; I10 Essential (primary) hypertension; F32.A Depression, unspecified; E66.9 Obesity, unspecified; F41.9 Anxiety disorder, unspecified; M79.7 Fibromyalgia; D63.0 Anemia in neoplastic disease; D50.9 Iron deficiency anemia, unspecified; R09.02 Hypoxemia; R00.1 Bradycardia, unspecified; Z68.29 Body mass index [BMI] 29.0-29.9, adult; Z87.891 Personal history of nicotine dependence; Z92.21 Personal history of antineoplastic chemotherapy; Z79.890 Hormone replacement therapy; Z79.899 Other long term (current) drug therapy
CPT/HCPCS: 64999; 71045; 71046; 80048; 80053; 82607; 82728; 82746; 82805; 83540; 83550; 83735; 83921; 84443; 84484; 85025; 85027; 88305; 88309; 93306; 94640

== ENCOUNTER → 2024-11-19 | Outpatient (CLI) | payer OTHER ==
[2024-11-19 10:54] LABS: African American GFR (CKD) 65 (>60 ml/min/1.73 sqM); Blood Urea Nitrogen 17 mg/dL (7-17); Non-African American GFR(CKD) 56 (>60 ml/min/1.73 sqM)
--- NOTE | 2024-11-19 11:50 | CT ---
EXAMINATION TYPE: CT chest w con DATE OF EXAM: 11/19/2024 11:18 AM COMPARISON: 02/08/2023, 05/02/2024, 02/07/2024, 01/25/2024 CLINICAL INDICATION: Female, 64 years old with history of C34.11 LUNG CANCER; PHH, Lung CA TECHNIQUE: Multiple axial images were obtained through the chest. Sagittal and coronal reformats were created for review. MIP was performed on a separate workstation. Contrast used:100 mL of Isovue 300 with IV Contrast (None if empty) Oral contrast used: (None if empty) CT DLP: 315.1 mGycm, Automated exposure control for dose reduction was used. FINDINGS: LUNGS/ PLEURA: Scattered nodules seen on prior no longer visualized. Ground glass opacity in the righ t lower lobe measuring 8 mm remains. Left upper lobe nodule seen on prior is not definitively visuali zed there is some mild groundglass probable scarring in this region which is linear and sagittal imag ing series 7 image 89. No focal consolidation, pneumothorax or pleural effusion. Cavitating lesion se en on prior exam on 02/07/2024 is no longer visualized. AIRWAY: Patent and unremarkable. HEART: Size within normal limits MEDIASTINUM: No gross evidence of adenopathy. VASCULATURE: No aortic aneurysm. MUSCULOSKELETAL: Mild disc degeneration changes are present throughout the thoracolumbar spine second patrick to osteophyte formation and facet joint arthropathy. SOFT TISSUES/LYMPH NODES: Unremarkable. LOWER NECK: No significant findings. UPPER ABDOMEN: Diffuse low-attenuation to the liver parenchyma. Indeterminate right adrenal 21 mm nod ule. The gallbladder surgically absent. IMPRESSION: 1. Overall improvement of the lungs with decrease in nodular findings compared to 05/02/2024. No new or enlarging pulmonary nodules. No suspicious pulmonary nodules visualized. No evidence for lymphaden opathy. Continued surveillance recommended. 2. stable right adrenal [address] or MRI adrenal mass protocol. 3. Hepatic steatosis [facility], , 11/19/2024 11:48 AM
== END | disposition home or self-care (01) ==
LOC: RADCTMAIN 10:14
PROVIDERS: ATTEND Internal Medicine Hematology & Oncology
DX: C34.11 Malignant neoplasm of upper lobe, right bronchus or lung (principal); R12 Heartburn; D35.01 Benign neoplasm of right adrenal gland; C56.9 Malignant neoplasm of unspecified ovary; K76.0 Fatty (change of) liver, not elsewhere classified; R91.1 Solitary pulmonary nodule; E27.8 Other specified disorders of adrenal gland
CPT/HCPCS: 82565; 84520; 71260; 36415; Q9967

== ENCOUNTER → 2025-04-21 | Outpatient (CLI) | payer OTHER ==
--- NOTE | 2025-04-21 17:29 | CT ---
EXAMINATION TYPE: CT chest w con DATE OF EXAM: 04/21/2025 5:05 PM COMPARISON: 11/19/2024 CLINICAL INDICATION: Female, 64 years old with history of C34.11 LUNG CANCER; PHH, Hx of lung CA. TECHNIQUE: Multiple axial images were obtained through the chest. Sagittal and coronal reformats were created for review. MIP was performed on a separate workstation. Contrast used:100 mL of Isovue 300 with IV Contrast (None if empty) Oral contrast used: (None if empty) CT DLP: 471 mGycm, Automated exposure control for dose reduction was used. FINDINGS: LUNGS/ PLEURA: Resolution of prior right lower lobe groundglass 30-year-old. No new or enlarging pulm onary nodules. Mild centrilobular emphysema. No focal consolidation, pneumothorax or pleural effusion . AIRWAY: Patent and unremarkable. HEART: Size within normal limits MEDIASTINUM: No gross evidence of adenopathy. VASCULATURE: No aortic aneurysm. MUSCULOSKELETAL: Mild disc degeneration changes are present throughout the thoracolumbar spine second patrick to osteophyte formation and facet joint arthropathy. SOFT TISSUES/LYMPH NODES: Unremarkable. LOWER NECK: No significant findings. UPPER ABDOMEN: Diffuse low-attenuation to the liver parenchyma. Indeterminate right adrenal 21 mm nod ule. The gallbladder surgically absent. Simple appearing left hepatic lobe probable cyst. IMPRESSION: 1. No evidence for acute process. 2. Resolution of prior groundglass opacity in the right lower lobe. No organizing fluid collection o r enlarging pulmonary nodules identified. 3. Mild emphysema 4. Hepatic steatosis. 5. Stable appearing right adrenal nodule. Follow up recommendations for incidental pulmonary nodules, if there are any, are per [employer] [employer] or [place] [employer]. [email or web address]/[email or web address]?lang=us [facility], , 04/21/2025 5:27 PM
== END | disposition home or self-care (01) ==
LOC: RADCTMAIN 16:32
PROVIDERS: ATTEND Internal Medicine Hematology & Oncology
DX: C34.11 Malignant neoplasm of upper lobe, right bronchus or lung (principal); E03.9 Hypothyroidism, unspecified; D35.01 Benign neoplasm of right adrenal gland; I10 Essential (primary) hypertension; K76.0 Fatty (change of) liver, not elsewhere classified; J43.2 Centrilobular emphysema; Z71.3 Dietary counseling and surveillance; R94.5 Abnormal results of liver function studies; R91.1 Solitary pulmonary nodule
CPT/HCPCS: 71260; Q9967